=== PATIENT | female | born 1955 | race Caucasian/White ===

== ENCOUNTER 2016-10-25 11:01 | Emergency (ER) | payer BC, OTHER ==
[~2016-10-25] VITALS: Ht 160 cm; Wt 69.7 kg
[~2016-10-25 11:01] MED LIST: SCOP1.5D TOP
[2016-10-25 11:08] VITALS: TEMP 36.8; Ht 160 cm; Wt 69.7 kg
[2016-10-25] MEDS ORDERED: SODIUM CHLORIDE 0.9% 1000ML 1,000 ML IV STA (11:26)
[2016-10-25] MEDS ORDERED: DiphenhydrAMINE HCL 50 MG/ML VIAL IV STA (11:26)
[2016-10-25] MEDS ORDERED: KETOROLAC TROMETHAMINE 30 MG/ML VIAL IV STA (11:26)
[2016-10-25] MEDS ORDERED: PROCHLORPERAZINE 5 MG/ML 2 ML VIAL IV STA (11:26)
[2016-10-25] MEDS ORDERED: DEXAMETHASONE SOD INJ 4 MG/ML VIAL IV STA (11:26)
--- NOTE | 2016-10-25 12:08 | EMERGENCY ROOM VISIT NOTE ---
ED Visit Note First contact with patient: 11:14 CHIEF COMPLAINT: Migraine headache HISTORY OF PRESENT ILLNESS: This 61-year-old female patient presented to the emergency department ambulatory with a gradual onset of a severe generalized headache that started 3 days ago. The patient reports she feels the migraine was stress-induced. The patient states the migraine is similar to their typical migraines. There has been associated photophobia, phonophobia, and nausea, but no vomiting. She has had a decreased oral intake due to the nausea. The patient denies fever or chills recently, and there is no weakness or numbness of the extremities. There is no difficulty with speech or vision. No trauma to the head and no neck pain. The pain is severe, constant, and it is slowly increasing in severity. The patient rates the pain as throbbing and 8/ 10. The patient has taken Imitrex without relief. This is not the worst headache of the life and is similar to previous migraines. Previous imaging studies of the brain have been normal. The patient sees Dr. Yun for her migraines and followed up most recently 1 month ago. REVIEW OF SYSTEMS: A review of systems was performed with positives and pertinent negatives listed in the history of present illness. All other systems were reviewed and are negative. ALLERGIES: No known drug allergies MEDICATIONS: See med list PMH: Migraine headaches. The patient is otherwise healthy. SOCIAL HISTORY: The patient lives locally with her . Nonsmoker, denies alcohol use. PHYSICAL EXAM: Vital Signs: Reviewed Nurse's notes, vital signs stable. GENERAL : This is a 61-year-old female, who appears in pain, but non toxic in appearance and in no acute distress. MENTAL STATUS: Alert, oriented, and coherent. HEENT: Normocephalic. PERRLA. EOMI. Nares patent without nuchal rigidity. Tympanic membranes pearly fields without erythema or effusion bilaterally. Mucous membranes moist. NECK: Supple, no nuchal rigidity, nontender, no lymphadenopathy. HEART: Regular rhythm and normal rate without murmurs, ectopy, gallops, or rubs. LUNGS: Clear to auscultation bilaterally without wheezes, rales or rhonchi. No dullness to percussion. No accessory muscle use. No retractions. SKIN: Normal. NEUROLOGICAL: Pupils are round, equal and react to light. The optic fundi are normal and the discs are flat. The patient moves all extremities well and the gait is normal. EMERGENCY DEPARTMENT COURSE: The differential diagnosis includes acute intracranial bleed, meningitis, encephalitis, mass or mass effect, sinusitis, infection, tumor, headache, temporal arteritis and carbon monoxide exposure, and migraine. I examined the patient. The patient is well-known to this emergency department and has been here multiple times in the past for migraine headaches. The patient is on a ZERO narcotic treatment plan due to history of DUI and narcotic addiction. She was given 1 L normal saline solution, 30 mg Toradol IV, 10 mg Compazine IV, 50 mg Benadryl IV, and 10 mg Decadron IV. The patient was reassessed and felt better, but did have some anxiety likely secondary to the Compazine. She was given 0.5 mg Ativan sublingually. She was instructed to follow-up with her neurologist and was discharged home in good condition. DIAGNOSIS: Migraine headache Problem List Medical Problems: (1) Abdominal pain Status: Resolved (2) Altered mental status Status: Resolved (3) Anxiety Status: Chronic (4) Anxiety Status: Chronic (5) Anxiety reaction Status: Resolved (6) Bladder infection Status: Resolved (7) Dehydration Status: Resolved (8) Depression Status: Chronic (9) Depression Status: Chronic (10) Depression Status: Resolved (11) Depression Status: Resolved (12) Depression Status: Resolved (13) Depression Status: Resolved (14) Depression Status: Resolved (15) Headache Status: Resolved (16) Headache Status: Resolved (17) Headache Status: Resolved (18) Headache Status: Resolved (19) Hypertension Nos Status: Chronic (20) Labial abscess Status: Resolved (21) Migraine Status: Resolved (22) Migraine Status: Resolved (23) Migraine Status: Chronic (24) Migraine Status: Chronic (25) Migraine Status: Resolved (26) Migraine Status: Resolved (27) Migraine Status: Resolved (28) Migraine Status: Chronic (29) Migraine Status: Resolved (30) Migraine Status: Resolved (31) Opiate abuse, episodic Status: Chronic (32) Opiate dependence Status: Chronic (33) Suicidal ideation Status: Resolved (34) Suicidal ideation Status: Resolved (35) Suicidal ideation Status: Resolved (36) Urinary tract infection Status: Resolved (37) Urinary tract infection Status: Resolved (38) Vomiting and diarrhea Status: Resolved Surgical Problems: (1) H/O: hysterectomy Status: Resolved Current/Historical Medications Scheduled Buspirone HCl (Buspirone HCl), 10 MG PO TID Duloxetine HCl (Duloxetine HCl), 30 MG PO DAILY Gabapentin (Gabapentin), 300 MG PO TID Lamotrigine (Lamotrigine), 100 MG PO BID Quetiapine Fumarate (Seroquel), 75 MG PO HS Sumatriptan Succinate (Sumatriptan Succinate), 1 DOSE INJ DIRECTED Topiramate (Topiramate), 100 MG PO BID Verapamil Hcl (Verapamil Hcl Sr), 240 MG PO DAILY Scheduled PRN Rizatriptan Benzoate (Rizatriptan Benzoate), 10 MG PO BID PRN for Migraine Allergies Coded Allergies: No Known Allergies (Unverified , 10/25/16) Vital Signs Date Time Temp Pulse Resp B/P Pulse Ox O2 Delivery O2 Flow Rate FiO2 10/25/16 12:37 90 20 157/91 97 Room Air 10/25/16 12:12 83 20 158/98 98 Room Air 10/25/16 11:08 36.8 101 18 130/85 97 Room Air Medications Administered Medications (Trade) Dose Ordered Sig/Mary Jane Route Start Time Stop Time Status Last Admin Dose Admin Sodium Chloride (Nss 1000ml) 1,000 ml @ 999 mls/hr Q1H1M STAT IV 10/25/16 11:26 10/25/16 12:26 DC 10/25/16 11:26 999 MLS/HR Ketorolac Tromethamine (Toradol Inj) 30 mg NOW STAT IV 10/25/16 11:26 10/25/16 11:30 DC 10/25/16 11:26 30 MG Prochlorperazine Edisylate (Compazine Inj) 10 mg NOW STAT IV 10/25/16 11:26 10/25/16 11:30 DC 10/25/16 11:26 10 MG Diphenhydramine HCl (Benadryl Inj) 50 mg NOW STAT IV 10/25/16 11:26 10/25/16 11:30 DC 10/25/16 11:26 50 MG Dexamethasone Sodium Phosphate (Decadron Inj) 10 mg NOW STAT IV 10/25/16 11:26 10/25/16 11:30 DC 10/25/16 11:26 10 MG Lorazepam (Ativan Tab) 0.5 mg NOW STAT SL 10/25/16 12:16 10/25/16 12:18 DC 10/25/16 12:16 0.5 MG Departure Information Impression Primary Impression: Migraine Dispostion Home / Self-Care Condition GOOD Referrals Ronald Pinzon M.D. (PCP) Simona Yun M.D. Patient Instructions [facility] Additional Instructions You have been treated in the Emergency Department for a Headache. You have received pain medicine in the emergency department which impairs your ability to operate a vehicle. It is illegal for you to drive after receiving these medicines. Continue your home medications as prescribed. You should relax in a quiet, dark place for the rest of the day. Avoid any possible triggers including: cigarette smoke, caffeine, nicotine, chocolate, wine, beer, loud noises or music, or bright lights. You should schedule a follow-up appointment in 2-3 days with your Primary Care Provider or established Neurologist for further evaluation and treatment of your Headache. Return to the Emergency Department if your current symptoms worsen despite treatment course outlined above, or if you develop any of the following symptoms : intractable pain despite aforementioned treatment course, visual disturbances , loss of vision, unilateral weakness or facial drooping, slurring of speech, loss of coordination, or loss of consciousness. Problem Qualifiers Primary Impression: Migraine Migraine type: with aura Status migrainosus presence: without status migrainosus Intractability: not intractable Qualified Codes: G43.109 - Migraine with aura, not intractable, without status migrainosus
[2016-10-25] MEDS ORDERED: LORAZEPAM 0.5 MG TAB SL STA (12:16)
[2016-10-25 12:37] VITALS: BP 157/91; PULSE 90; O2SAT 97
[2016-12-31] MEDS ORDERED: SUMA1INJ5 INJ (15:29)
[2016-12-31] MEDS ORDERED: LAMO1TAB21 PO (15:45)
[2016-12-31] MEDS ORDERED: GABA1CAP4 PO (15:45)
[2016-12-31] MEDS ORDERED: BSP/10 PO (15:45)
[2016-12-31] MEDS ORDERED: MXL10 PO (17:31)
[2016-12-31] MEDS ORDERED: QUET1TAB32 PO (17:50)
== END 2016-10-25 12:50 | disposition home or self-care (01) ==
LOC: C.EDB 11:03 → C.EDC 12:50
DX: G43.109 Migraine with aura, not intractable, without status migrainosus (principal); F41.9 Anxiety disorder, unspecified; F32.9 Major depressive disorder, single episode, unspecified; I10 Essential (primary) hypertension; F11.10 Opioid abuse, uncomplicated; Z79.899 Other long term (current) drug therapy

== ENCOUNTER 2016-12-31 14:38 | Emergency (ER) | payer BC ==
[~2016-12-31] VITALS: Ht 160 cm; Wt 74.0 kg
[2016-12-31 14:44] VITALS: TEMP 36.9; Ht 160 cm; Wt 74.0 kg
[2016-12-31] MEDS ORDERED: XYLOCAINE 1%/SOD BICARB 20 ML VIAL INFIL ONE (15:00)
--- NOTE | 2016-12-31 15:18 | EMERGENCY ROOM VISIT NOTE ---
History Report prepared by Ashtyn: Zoya Johnson Under the Supervision of: Dr. Corey Winchester M.D. First contact with patient: 14:51 Chief Complaint: MENTAL HEALTH EVALUATION Stated Complaint: CUT ON LEFT WRIST History of Present Illness The patient is a 61 year old female who presents to the Emergency Room with complaints of persistent depressed mood for the past couple of weeks. She does not identify any triggers for her mood. She cut her left wrist with a razor. She has hurt herself before. She describes herself as a cutter. She feels that she would hurt herself again if she went back home. She has a history of depression and has been admitted before. She is on medications and has been taking them. She denies any alcohol or drug use. She has had a tetanus shot in the last 10 years. Source of History: patient Onset: past couple weeks Position: other (mental health) Quality: other (depressed mood) Timing: other (persistent) Note: Pt reports self harm. Review of Systems See HPI for pertinent positives & negatives. A total of 10 systems reviewed and were otherwise negative. Past Medical & Surgical Medical Problems: (1) Abdominal pain (2) Altered mental status (3) Anxiety (4) Anxiety (5) Anxiety reaction (6) Bladder infection (7) Dehydration (8) Depression (9) Depression (10) Depression (11) Depression (12) Depression (13) Depression (14) Depression (15) Headache (16) Headache (17) Headache (18) Headache (19) Hypertension Nos (20) Labial abscess (21) Migraine (22) Migraine (23) Migraine (24) Migraine (25) Migraine (26) Migraine (27) Migraine (28) Migraine (29) Migraine (30) Migraine (31) Opiate abuse, episodic (32) Opiate dependence (33) past psych meds (34) Suicidal ideation (35) Suicidal ideation (36) Suicidal ideation (37) Urinary tract infection (38) Urinary tract infection (39) Vomiting and diarrhea Surgical Problems: (1) H/O: hysterectomy Family History Diabetes mellitus FHx: heart disease Social History Smoking Status: Never Smoker Alcohol Use: none Drug Use: none Marital Status: Housing Status: lives with family Occupation Status: retired Current/Historical Medications Scheduled Buspirone HCl (Buspirone HCl), 10 MG PO TID Duloxetine HCl (Duloxetine HCl), 30 MG PO DAILY Gabapentin (Gabapentin), 300 MG PO TID Lamotrigine (Lamotrigine), 100 MG PO BID Quetiapine Fumarate (Seroquel), 75 MG PO HS Sumatriptan Succinate (Sumatriptan Succinate), 1 DOSE INJ DIRECTED Topiramate (Topiramate), 100 MG PO BID Verapamil Hcl (Verapamil Hcl Sr), 240 MG PO DAILY Scheduled PRN Rizatriptan Benzoate (Rizatriptan Benzoate), 10 MG PO BID PRN for Migraine Allergies Coded Allergies: No Known Allergies (Unverified , 10/25/16) Physical Exam Vital Signs Date Time Temp Pulse Resp B/P Pulse Ox O2 Delivery O2 Flow Rate FiO2 12/31/16 18:03 81 18 149/95 95 Room Air 12/31/16 16:44 80 18 155/107 96 Room Air 12/31/16 14:44 36.9 98 20 159/97 94 Room Air Physical Exam GENERAL: Patient is depressed appearing and in no acute distress. HEENT: No acute trauma, normocephalic atraumatic, mucous membranes moist, no nasal congestion, no scleral icterus. NECK: No stridor, no adenopathy, no meningismus, trachea is midline. LUNGS: No dyspnea. Clear to auscultation and equal bilaterally. No wheeze, no rhonchi. HEART: Regular rate and rhythm. No murmurs, rubs, gallops appreciated. ABDOMEN: Soft, nontender, bowel sounds positive, no masses appreciated, no peritonitis. BACK: No midline tenderness, no CVA tenderness EXTREMITIES: Normal motion all extremities, no cyanosis, no edema. NEUROLOGIC: Alert and oriented, no acute motor or sensory deficits, no focal weakness, cranial nerves grossly intact. SKIN: No rash, no jaundice, no diaphoresis. Many parallel lacerations over the distal left wrist, some deep to fascia without tendon, nerve, or arterial involvement and distal n/v intact. PSYCH: Denies suicidal ideation, though admits thoughts of cutting, admits depression. Medical Decision & Procedures Laboratory Results 12/31/16 15:18 Red Blood Count 4.53, Mean Corpuscular Volume 88.5, Mean Corpuscular Hemoglobin 30.0, Mean Corpuscular Hemoglobin Concent 33.9, Mean Platelet Volume 10.1, Neutrophils (%) (Auto) 58.6, Lymphocytes (%) (Auto) 30.8, Monocytes (%) (Auto) 8.1, Eosinophils (%) (Auto) 1.4, Basophils (%) (Auto) 0.7, Neutrophils # (Auto) 4.04, Lymphocytes # (Auto) 2.13, Monocytes # (Auto) 0.56, Eosinophils # (Auto) 0.10, Basophils # (Auto) 0.05 12/31/16 15:18 Test 12/31/16 15:01 12/31/16 15:18 Urine Color YELLOW Urine Appearance CLEAR (CLEAR) Urine pH 5.5 (4.5-7.5) Urine Specific [place] 1.027 (1.000-1.030) Urine Protein NEG (NEG) Urine Glucose (UA) NEG (NEG) Urine Ketones NEG (NEG) Urine Occult Blood NEG (NEG) Urine Nitrite NEG (NEG) Urine Bilirubin NEG (NEG) Urine Urobilinogen NEG (NEG) Urine Leukocyte Esterase TRACE (NEG) Urine WBC (Auto) 1-5 /hpf (0-5) Urine RBC (Auto) 0-4 /hpf (0-4) Urine Hyaline Casts (Auto) 1-5 /lpf (0-5) Urine Epithelial Cells (Auto) >30 /lpf (0-5) Urine Bacteria (Auto) NEG (NEG) Urine Opiates Screen NEG (NEG) Urine Methadone, Qualitative NEG (NEG) Urine Barbiturates NEG (NEG) Urine Phencyclidine (PCP) Level NEG (NEG) Ur Amphetamine/Methamphetamine NEG (NEG) MDMA (Ecstasy) Screen NEG (NEG) Urine Benzodiazepines Screen NEG (NEG) Urine Cocaine Metabolite NEG (NEG) Urine Marijuana (THC) NEG (NEG) White Blood Count 6.91 K/uL (4.8-10.8) Red Blood Count 4.53 M/uL (4.2-5.4) Hemoglobin 13.6 g/dL (12.0-16.0) Hematocrit 40.1 % (37-47) Mean Corpuscular Volume 88.5 fL (80-100) Mean Corpuscular Hemoglobin 30.0 pg (25-34) Mean Corpuscular Hemoglobin Concent 33.9 g/dl (32-36) Platelet Count 210 K/uL (130-400) Mean Platelet Volume 10.1 fL (7.4-10.4) Neutrophils (%) (Auto) 58.6 % Lymphocytes (%) (Auto) 30.8 % Monocytes (%) (Auto) 8.1 % Eosinophils (%) (Auto) 1.4 % Basophils (%) (Auto) 0.7 % Neutrophils # (Auto) 4.04 K/uL (1.4-6.5) Lymphocytes # (Auto) 2.13 K/uL (1.2-3.4) Monocytes # (Auto) 0.56 K/uL (0.11-0.59) Eosinophils # (Auto) 0.10 K/uL (0-0.5) Basophils # (Auto) 0.05 K/uL (0-0.2) RDW Standard Deviation 44.3 fL (36.4-46.3) RDW Coefficient of Variation 13.6 % (11.5-14.5) Immature Granulocyte % (Auto) 0.4 % Immature Granulocyte # (Auto) 0.03 K/uL (0.00-0.02) Anion Gap 7.0 mmol/L (3-11) Est Creatinine Clear Calc Drug Dose 46.8 ml/min Estimated GFR () 56.1 Estimated GFR (Non- 48.4 BUN/Creatinine Ratio 17.3 (10-20) Calcium Level 8.8 mg/dl (8.5-10.1) Total Bilirubin 0.4 mg/dl (0.2-1) Aspartate Amino Transf (AST/SGOT) 13 U/L (15-37) Alanine Aminotransferase (ALT/SGPT) 24 U/L (12-78) Alkaline Phosphatase 91 U/L (45-117) Total Protein 7.0 gm/dl (6.4-8.2) Albumin 3.9 gm/dl (3.4-5.0) Globulin 3.1 gm/dl (2.5-4.0) Albumin/Globulin Ratio 1.3 (0.9-2) Thyroid Stimulating Hormone (TSH) 2.080 uIu/ml (0.300-4.500) Salicylates Level < 1.7 mg/dl (2.8-20) Acetaminophen Level 3 ug/ml (10-30) Ethyl Alcohol mg/dL < 3.0 mg/dl (0-3) Laboratory results as reviewed by me. ED Course 1452: The patient was evaluated in room A7. A complete history and physical exam was performed. 1740: I reevaluated the patient. She feels comfortable going home. The psych case maker says that it would be acceptable for her to be discharged home. I discussed the treatment plan with the patient. She verbalized understanding and agreement. She will be discharged home. Medical Decision Differential: Mood Disorder, Overdose, Infectious, Electrolyte Abnormality, Cardiac, Hepatic, Endocrine, Toxicologic, Neurologic, amongst other pathologies entertained. 61 yr old female well known to department for frequent visits arrives with left wrist lacerations. No tendon/nerve/vascular injury. Initially a bit vague on risks at home but after being here for some time, discussion with psych case management and further discussions patient notes she feels safe going home. She denies any more thoughts of harm to self and denies any plans to hurt self. Family and friend feel she is safe for discharge. She will follow up with PCP. RTED if worsening or other concerns. She is stable and feeling well. Labs look good. Lacerations to wrist repaired. Wound care discussed. Impression Primary Impression: Depression Additional Impression: Laceration of wrist, left Scribe Attestation The scribe's documentation has been prepared under my direction and personally reviewed by me in its entirety. I confirm that the note above accurately reflects all work, treatment, procedures, and medical decision making performed by me. Departure Information Dispostion Home / Self-Care Referrals Ronald Pinzon M.D. (PCP) Patient Instructions ED Depression, ED Laceration Ext Sutr Stap Tape, Matchpin Additional Instructions Return in 1 week or follow up with PCP for suture removal. We are always here to help. Problem Qualifiers Primary Impression: Depression Depression Type: major depressive disorder Major depression recurrence: recurrent Active/Remission status: in partial remission Qualified Codes: F33.41 - Major depressive disorder, recurrent, in partial remission Additional Impression: Laceration of wrist, left Encounter type: initial encounter Qualified Codes: S61.512A - Laceration without foreign body of left wrist, initial encounter
[2016-12-31 15:32] LABS: URINE APPEARANCE CLEAR (CLEAR); URINE BILIRUBIN NEG (NEG); URINE COLOR YELLOW; URINE EPITHELIAL CELL AUTO >30 /lpf (0-5); URINE NITRITE NEG (NEG); URINE PH 5.5 (4.5-7.5); URINE SPECIFIC GRAVITY 1.027 (1.000-1.030); UROBILINOGEN NEG (NEG); ZZUR CULT IF INDIC CLEAN CATCH NO
[2016-12-31 15:37] LABS: MANUAL MICROSCOPIC REQUIRED? NO; REVIEW REQ? NO
[2016-12-31 15:38] LABS: BASO % 0.7 %; BASO ABS # 0.05 K/uL (0-0.2); COMPLETE YES; EOS % 1.4 %; HEMATOCRIT 40.1 % (37-47); IG% 0.4 %; LYMPH % 30.8 %; LYMPH ABS # 2.13 K/uL (1.2-3.4); MEAN CELL VOLUME 88.5 fL (80-100); MEAN CORPUSCULAR HGB CONC 33.9 g/dl (32-36); MEAN PLATELET VOLUME 10.1 fL (7.4-10.4); MONO % 8.1 %; NEUT % 58.6 %; PLATELET COUNT 210 K/uL (130-400); RED BLOOD COUNT 4.53 M/uL (4.2-5.4); WHITE BLOOD COUNT 6.91 K/uL (4.8-10.8)
[2016-12-31] MEDS ORDERED: VERA240C3 PO (15:38)
[2016-12-31 16:00] LABS: BUN/CREATININE RATIO 17.3 (10-20); CALCIUM 8.8 mg/dl (8.5-10.1); CREATININE 1.2 mg/dl (0.60-1.20); POTASSIUM 3.4 mmol/L (3.5-5.1)
[2016-12-31 16:06] LABS: BENZODIAZEPINE, URINE NEG (NEG); COCAINE,URINE NEG (NEG); PHENCYCLIDINE, URINE NEG (NEG)
[2016-12-31 16:07] LABS: ACETAMINOPHEN 3 ug/ml (10-30)
[2016-12-31 16:11] LABS: ALB/GLOB RATIO 1.3 (0.9-2); THYROID STIMULATING HORMONE 2.08 uIu/ml (0.300-4.500)
[2016-12-31] MEDS ORDERED: TPM100 PO (17:31)
[2016-12-31] MEDS ORDERED: RIZA10TA21 PO (17:31)
[2016-12-31] MEDS ORDERED: CYM30 PO (17:31)
[2016-12-31 18:03] VITALS: BP 149/95; PULSE 81; O2SAT 95
[2017-07-15] MEDS ORDERED: VITAFUSION PO (07:49)
[2017-07-24] MEDS ORDERED: DULO60CA44 PO (07:48)
[2017-07-24] MEDS ORDERED: SUMA1INJ5 INJ (15:29)
[2017-07-24] MEDS ORDERED: LAMO1TAB21 PO (15:45)
[2017-07-24] MEDS ORDERED: BSP/10 PO (15:45)
[2017-07-24] MEDS ORDERED: GABA1CAP4 PO (15:45)
[2017-07-24] MEDS ORDERED: QUET1TAB32 PO (17:50)
== END 2016-12-31 18:06 | disposition home or self-care (01) ==
LOC: C.EDB 14:40 → C.EDA 18:06
DX: F33.41 Major depressive disorder, recurrent, in partial remission (principal); S61.512A Laceration without foreign body of left wrist, initial encounter; X78.9XXA Intentional self-harm by unspecified sharp object, initial encounter; F41.8 Other specified anxiety disorders; I10 Essential (primary) hypertension; R45.851 Suicidal ideations; Z82.49 Family history of ischemic heart disease and other diseases of the circulatory system; Z83.3 Family history of diabetes mellitus

== ENCOUNTER → 2017-05-01 | Outpatient (CLI) | payer BC ==
[~2017-05-01] MED LIST changes: +BSP/10 PO; +CYM30 PO; +GABA1CAP4 PO; +LAMO1TAB21 PO; +MXL10 PO; +QUET1TAB32 PO; -SCOP1.5D TOP; +SUMA1INJ5 INJ; +TPM100 PO; +VERA240C3 PO
[2017-05-01 12:56] LABS: BASO % 0.7 %; BASO ABS # 0.04 K/uL (0-0.2); COMPLETE YES; EOS % 1.8 %; HEMATOCRIT 42.5 % (37-47); IG% 0.2 %; LYMPH % 27.5 %; LYMPH ABS # 1.65 K/uL (1.2-3.4); MEAN CELL VOLUME 91.2 fL (80-100); MEAN CORPUSCULAR HEMOGLOBIN 30.3 pg (25-34); MEAN CORPUSCULAR HGB CONC 33.2 g/dl (32-36); MEAN PLATELET VOLUME 10.3 fL (7.4-10.4); MONO % 8.7 %; NEUT % 61.1 %; PLATELET COUNT 248 K/uL (130-400); RED BLOOD COUNT 4.66 M/uL (4.2-5.4)
[2017-05-01 13:42] LABS: ALT/SGPT 23 U/L (12-78); BLOOD UREA NITROGEN 15 mg/dl (7-18); BUN/CREATININE RATIO 12.4 (10-20); CALCIUM 9.1 mg/dl (8.5-10.1); CARBON DIOXIDE 27 mmol/L (21-32); CHLORIDE 109 mmol/L (98-107); CHOLESTEROL 236 mg/dl (0-200); GLUCOSE 91 mg/dl (70-99); POTASSIUM 3.8 mmol/L (3.5-5.1); SODIUM 142 mmol/L (136-145); TRIGLYCERIDES 208 mg/dl (0-150); VERY LOW DENSITY LIPOPROT CALC 42 mg/dl
[2017-05-01 13:52] LABS: ALKALINE PHOSPHATASE 105 U/L (45-117); AST/SGOT 19 U/L (15-37); CHOLESTEROL/HDL RATIO 4.1; HDL CHOLESTEROL 57 mg/dl; LDL CHOLESTEROL CALCULATED 137 mg/dl; THYROID STIMULATING HORMONE 0.974 uIu/ml (0.300-4.500)
[2017-05-01 15:12] LABS: LYME DISEASE AB IGG NEG (NEG)
[2017-05-01 15:13] LABS: LYME DISEASE AB IGM NEG (NEG)
== END | disposition home or self-care (01) ==
LOC: C.LABBFT 10:46
PROVIDERS: ATTEND Physician Assistant Medical
DX: Z11.59 Encounter for screening for other viral diseases (principal); Z13.6 Encounter for screening for cardiovascular disorders; R61 Generalized hyperhidrosis

== ENCOUNTER → 2017-06-19 | Outpatient (CLI) | payer BC ==
--- NOTE | 2017-06-20 14:12 | MAMMOGRAPHY REPORT ---
BILATERAL DIGITAL SCREENING MAMMOGRAM TOMOSYNTHESIS WITH CAD: 06/19/2017 CLINICAL HISTORY: Routine screening. Patient has no complaints. TECHNIQUE: Breast tomosynthesis in addition to standard 2D mammography was performed. Current study was also evaluated with a Computer Aided Detection (CAD) system. COMPARISON: Comparison is made to exams dated: 02/02/2016 mammogram, 01/19/2015 mammogram, 08/25/2012 mammogram, 08/20/2011 mammogram, 08/10/2010 mammogram, and 08/09/2009 mammogram - [facility]. BREAST COMPOSITION: The tissue of both breasts is heterogeneously dense, which may obscure small mas ses. FINDINGS: No suspicious masses, calcifications, or areas of architectural distortion are noted in ei ther breast. There has been no significant interval change compared to prior exams. Scattered bilater al benign-appearing calcifications are not significantly changed. There is possible minimal architec tural distortion within the right central breast, which appears similar to multiple prior exams inclu ding the 2010 and 2008 exams, and likely represents postsurgical changes from prior reported excision al biopsy. IMPRESSION: ACR BI-RADS CATEGORY 2: BENIGN There is no mammographic evidence of malignancy. A 1 year screening mammogram is recommended. The pa tient will receive written notification of the results. Approximately 10% of breast cancers are not detected with mammography. A negative mammographic report should not delay biopsy if a clinically suggestive mass is present. Ruthann Isabel M.D. /:06/19/2017 14:52:27 Men'S Leather Dress Belt Maker: Christi TURNER(Hugo)(Natty), [facility] letter sent: Normal 1/2 BI-RADS Code: ACR BI-RADS Category 2: Benign
== END | disposition home or self-care (01) ==
LOC: C.MAMM 07:31
PROVIDERS: ATTEND Obstetrics & Gynecology
DX: Z12.31 Encounter for screening mammogram for malignant neoplasm of breast (principal)

== ENCOUNTER 2017-07-24 18:09 | Emergency (ER) | payer BC ==
[~2017-07-24] VITALS: Ht 160 cm; Wt 75.8 kg
[~2017-07-24 18:09] MED LIST changes: -CYM30 PO; +DULO60CA44 PO; -MXL10 PO; -TPM100 PO; -VERA240C3 PO; +VITAFUSION PO
[2017-07-24 18:16] VITALS: TEMP 36.7; Ht 160 cm; Wt 75.8 kg
[2017-07-24] MEDS ORDERED: DEXAMETHASONE **PF** INJ 10 MG/ML VIAL PO STA (18:41)
[2017-07-24] MEDS ORDERED: METOCLOPRAMIDE HCL INJ 5 MG/ML 2 ML VIAL IV STA (18:41)
[2017-07-24] MEDS ORDERED: DiphenhydrAMINE HCL 50 MG/ML VIAL IV STA (18:41)
[2017-07-24] MEDS ORDERED: KETOROLAC TROMETHAMINE 30 MG/ML VIAL IV STA (18:41)
--- NOTE | 2017-07-24 18:44 | EMERGENCY ROOM VISIT NOTE ---
History Report prepared by Ashtyn: Abel Sigala Under the Supervision of: Dr. Sb Herrera M.D. First contact with patient: 18:26 Chief Complaint: HEADACHE Stated Complaint: MIGRAINE, RIGHT-SIDED HEAD PAIN History of Present Illness The patient is a 61 year old white female with a past medical history of migraines, opiate abuse, anxiety, depression, SI, and UTIs who presents to the ED with a cc of a constant headache beginning two days ago. She currently rates her discomfort an 8/10 in severity. The patient states these feel like her typical migraines. She tried Imitrex injection yesterday, but it did not help. Positive blurred vision, occasional alcohol use, light increasing her symptoms, increased stress. Negative decreased movement, medical changes, tobacco use, drug use, changes in caffeine intact, increased pain with sound, sorethroat, congestion, cough, abdominal pain, recent travel, being around anyone sick, pain with urination, blood with urination, vaginal bleeding, vaginal discharge. Source of History: patient Onset: two days ago Position: head Symptom Intensity: 8/10 Quality: ache Timing: constant Modifying Factors (Worsening): other (light) Associated Symptoms: No sorethroat, No cough, No abdominal pain Note: Associated symptoms: blurred vision, increased stress Denies: decreased movement, medical changes, tobacco use, drug use, changes in caffeine intact, increased pain with sound, congestion, recent travel, being around anyone sick, pain with urination, blood with urination, vaginal bleeding , vaginal discharge. Review of Systems See HPI for pertinent positives and negatives. A total of ten systems were reviewed and were otherwise negative. Past Medical & Surgical Medical Problems: (1) Abdominal pain (2) Altered mental status (3) Anxiety (4) Anxiety (5) Anxiety reaction (6) Bladder infection (7) Dehydration (8) Depression (9) Depression (10) Depression (11) Depression (12) Depression (13) Depression (14) Depression (15) Headache (16) Headache (17) Headache (18) Headache (19) Hypertension Nos (20) Labial abscess (21) Migraine (22) Migraine (23) Migraine (24) Migraine (25) Migraine (26) Migraine (27) Migraine (28) Migraine (29) Migraine (30) Migraine (31) Opiate abuse, episodic (32) Opiate dependence (33) past psych meds (34) Suicidal ideation (35) Suicidal ideation (36) Suicidal ideation (37) Urinary tract infection (38) Urinary tract infection (39) Vomiting and diarrhea Surgical Problems: (1) H/O: hysterectomy Family History Diabetes mellitus FHx: heart disease Social History Smoking Status: Former Smoker Alcohol Use: none Drug Use: none Marital Status: Housing Status: lives with family Occupation Status: retired Current/Historical Medications Scheduled Buspirone HCl (Buspirone HCl), 10 MG PO TID Duloxetine Hcl (Cymbalta), 60 MG PO BID Gabapentin (Gabapentin), 300 MG PO TID Lamotrigine (Lamotrigine), 100 MG PO BID Pediatric Multiple Vitamin W/ (Gummi Bear Multivitamin/M), 1 TAB PO DAILY Quetiapine Fumarate (Seroquel), 1.5 TABS PO HS Scheduled PRN Acetamin/Butalbital/Caffeine (Fioricet), 1 TAB PO TID PRN for Pain Sumatriptan Succinate (Sumatriptan Succinate), 1 DOSE INJ UD PRN for Migraine Allergies Coded Allergies: No Known Allergies (Unverified , 07/15/17) Physical Exam Vital Signs Date Time Temp Pulse Resp B/P (MAP) Pulse Ox O2 Delivery O2 Flow Rate FiO2 07/24/17 21:41 84 181/101 93 07/24/17 20:14 80 177/105 95 Room Air 07/24/17 18:16 36.7 90 16 165/114 97 Room Air Physical Exam GENERAL: Awake, alert, well-appearing, NAD HENT: Normocephalic, some reproducible right forehead pain. EYES: Normal conjunctiva. Sclera non-icteric. NECK: Supple. No nuchal rigidity. FROM. No signs of meningismus. No c-spine tenderness. RESPIRATORY: CTAB, no rhonchi, wheezing, crackles CARDIAC: RRR, no MRG ABDOMEN: Soft, NTND, BS+ MSK: No chest wall TTP, no LE edema NEURO: CN 2-12 intact, 5/5 upper and lower extremity strength, no dysmetria, no drift, good finger to nose, no sensory deficits. SKIN: No rash or jaundice noted. Medical Decision & Procedures Medications Administered Medications (Trade) Dose Ordered Sig/Mary Jane Route Start Time Stop Time Status Last Admin Dose Admin Dexamethasone Sodium Phosphate (Dexamethasone Inj Pf) 10 mg ONE STAT PO 07/24/17 18:41 07/24/17 18:43 DC 07/24/17 18:59 10 MG Ketorolac Tromethamine (Toradol Inj) 30 mg NOW STAT IV 07/24/17 18:41 07/24/17 18:43 DC 07/24/17 18:58 30 MG Metoclopramide HCl (Reglan Inj) 10 mg NOW STAT IV 07/24/17 18:41 07/24/17 18:43 DC 07/24/17 18:58 10 MG Diphenhydramine HCl (Benadryl Inj) 25 mg NOW STAT IV 07/24/17 18:41 07/24/17 18:43 DC 07/24/17 18:58 25 MG Acetaminophen/ Butalbital/ Caffeine (Fioricet Tab) 1 tab NOW STAT PO 07/24/17 20:21 07/24/17 20:23 DC 07/24/17 20:48 1 TAB Prochlorperazine Maleate (Compazine Tab) 10 mg ONE STAT PO 07/24/17 20:21 07/24/17 20:23 DC 07/24/17 20:48 10 MG ED Course 1830: The patient was evaluated in room C02B. A complete history and physical exam was performed. 1954: I reevaluated the a patient and updated her of her current exam findings. Her pain has decreased from an 8 to a 6/10. It has not resolved. 2108: I reevaluated the patient. Discussed results and discharge instructions: she verbalized understanding and agreement. The patient is ready for discharge. Medical Decision The patient is a 61 year old white female with a past medical history of migraines, opiate abuse, anxiety, depression, SI, and UTIs who presents to the ED with a cc of a constant headache beginning two days ago. Etiologies such as migraine headache, meningitis, sinusitis, CO exposure, ICH, SAH, infection, tumor, headache, sinus thrombosis, arterial dissection, as well as others were entertained. Patient was seen and evaluated at the bedside. Patient is complaining of a migraine ongoing since Friday. It is right-sided on the forehead throbbing in nature. Patient does have some photophobia. This is typical with her migraines. Patient did use an Imitrex shot yesterday which did not help. She is trying pain medicine. Patient has no neurologic deficits. She denies any numbness, weakness, or tingling. Patient denies any recent trauma does not take any blood thinning medications per the patient. On exam patient has no neurologic deficits. Patient is no signs of meningismus do not believe this to be meningitis. Patient received medications. No CT of the brain was obtained at this time given that the patient had typical symptoms and had no neurologic deficits. Upon reassessment patient's pain is improved although not resolved. Patient did give and some additional medications. Patient was feeling further improvement. Patient was able tolerate by mouth. Do not believe the patient has meningitis given the history and physical. Patient was told to follow up as an outpatient with either her neurologist in order primary care physician. Patient was agreeable to this plan. Patient was given strict follow-up, discharge, and return precautions. All questions were answered. Patient was deemed suitable for outpatient follow-up at this time. Patient agreed with the plan of care and was safely discharged home. Impression Primary Impression: Headache Scribe Attestation The scribe's documentation has been prepared under my direction and personally reviewed by me in its entirety. I confirm that the note above accurately reflects all work, treatment, procedures, and medical decision making performed by me. Departure Information Dispostion Home / Self-Care Prescriptions Acetamin/Butalbital/Caffeine (FIORICET) 1 Ea Tab 1 TAB PO TID Y for Pain for 5 Days, #15 TAB Prov: Sb Herrera M.D. 07/24/17 Referrals Ronald Pinzon M.D. (PCP) Forms HOME CARE DOCUMENTATION FORM, IMPORTANT VISIT INFORMATION Patient Instructions ED Headache Migraine, Migraine Stages Tx, My [facility] Additional Instructions Please return to the emergency department if you have worsening or recurrent symptoms not amenable to at-home treatment. Please call for a follow-up appointment with her primary care physician. Please take your medications as prescribed. If you have other concerns and/or complaints please feel free to also call your primary care physician's office or return the ED for further evaluation, management, and treatment. You may take 600 mg Ibuprofen every 6 hours as needed for pain with food for no more than 2 consecutive days. You may take tylenol 1000 mg every 6 hours as needed for pain. You may take motrin and tylenol separately or at the same time. Take your medications as prescribed. You have been examined and treated today on an emergency basis only. This is not a substitute for, or an effort to provide, complete comprehensive medical care. It is impossible to recognize and treat all injuries or illnesses in a single emergency department visit. It is therefore important that you follow up closely with [facility], your PCP, and/or your specialist(s). Call as soon as possible for an appointment. Thank you for your time and consideration. I look forward to speaking with you again soon. Please don't hesitate to call us if you have any questions. Problem Qualifiers Primary Impression: Headache Headache type: unspecified Headache chronicity pattern: acute headache Intractability: not intractable Qualified Codes: R51 - Headache
[2017-07-24] MEDS ORDERED: PEDICHW34 PO (19:07)
[2017-07-24] MEDS ORDERED: PROCHLORPERAZINE MALEATE 10 MG TAB PO STA (20:21)
[2017-07-24] MEDS ORDERED: BUTALBITAL/ACETAMIN/CAFFEINE TAB PO STA (20:21)
[2017-07-24] MEDS ORDERED: FRCT/ PO (21:21)
[2017-07-24 21:41] VITALS: BP 181/101; PULSE 84; O2SAT 93
== END 2017-07-24 21:42 | disposition home or self-care (01) ==
LOC: C.EDB 18:10 → C.EDC 21:42
DX: G43.909 Migraine, unspecified, not intractable, without status migrainosus (principal); F41.9 Anxiety disorder, unspecified; F32.9 Major depressive disorder, single episode, unspecified; I10 Essential (primary) hypertension; F11.11 Opioid abuse, in remission; Z87.440 Personal history of urinary (tract) infections; Z87.891 Personal history of nicotine dependence; Z83.3 Family history of diabetes mellitus

== ENCOUNTER → 2017-07-28 | Day surgery (SDC) | payer BC ==
[2017-07-15 07:51] VITALS: Ht 160 cm; Wt 72.7 kg
[~2017-07-28] VITALS: Ht 160 cm; Wt 72.7 kg
[~2017-07-28] MED LIST changes: +ATROPINE SULFATE 0.1 MG/ML 5ML SYR IV PRN; +EpHEDrine SULFATE INJ 50 MG/ML AMP IV PRN; +FRCT/ PO; +PEDICHW34 PO; +PROPOFOL IV EMULSION 10 MG/ML 20 ML VIAL IV ONE; +SODIUM CHLORIDE 0.9% 500ML 500 ML IV ONE; -VITAFUSION PO
--- NOTE | 2017-07-28 13:50 | Endo History and Physical ---
History & Physical Date of Service: Jul 28, 2017. Chief Complaint: screening Referring Physician: Dr. Ronald Pinzon History of Present Illness 61 yo CF who presents for screening colonoscopy. Past Medical History Neurological Disorder, Fractures, Seizure Disorder, Depression Past Surgical History Hx Cardiac Surgery: No Hx Internal Defibrillator: No Hx Pacemaker: No Hx Abdominal Surgery: Yes (BLANQUITA BSO) Hx of Implantable Prosthesis: No Hx Post-Op Nausea and Vomiting: No Hx Cancer Surgery: No Hx Thoracic Surgery: No Hx Orthopedic: Yes (LT LEG ABCESS DRAINAGE (MRSA)) Hx Urinary Tract Surgery: No Family History None Social History Smoking Status: Former Smoker Hx Substance Use: Yes (HX NARCOTIC USE; QUIT 2013) Hx Alcohol Use: No Allergies Coded Allergies: No Known Allergies (Verified , 07/28/17) Current Medications Reported Home Medications Medications Dose Route/Sig Max Daily Dose Days Date Category Fioricet (Acetaminophen/Butalbital/Caffeine) 1 Ea Tab 1 Tab PO TID PRN 5 07/24/17 Rx Gummi Bear Multivitamin/M (Pediatric Multiple Vitamin W/) 1 Chw Chw 1 Tab PO DAILY 07/24/17 Reported Cymbalta (Duloxetine Hcl) 60 Mg Cap 60 Mg PO BID 07/15/17 Reported Sumatriptan Succinate 6 Mg/0.5 Ml Inj 1 Dose INJ UD PRN 07/29/16 Reported Seroquel (Quetiapine Fumarate) 50 Mg Tab 1.5 Tabs PO HS 02/15/16 Reported Lamotrigine 100 Mg Tab 100 Mg PO BID 03/03/15 Reported Gabapentin 300 Mg Cap 300 Mg PO TID 03/03/15 Reported Buspirone HCl 10 Mg Tab 10 Mg PO TID 03/03/15 Reported Vital Signs Weight (Kilograms): 72.73 Height (Feet): 5 Height (Inches): 3 Date Time Temp Pulse Resp B/P (MAP) Pulse Ox O2 Delivery O2 Flow Rate FiO2 07/28/17 13:38 37.1 90 18 175/100 (125) 98 Room Air Physical Exam General Appearance: WD/WN, no apparent distress Respiratory/Chest: Auscultation: breath sounds normal Cardiovascular: Heart Auscultation: RRR Abdomen: Bowel Sounds: normal Inspection & Palpation: soft, non-distended, no tenderness, guarding & rebound Assessment and Plan Assessment: 61 yo CF who presents for screening colonoscopy. Plan: Proceed with colonoscopy.
--- NOTE | 2017-07-28 14:26 | Discharge Instructions ---
Endoscopy Patient Instructions Date / Procedure(s) Performed Jul 28, 2017. Colonoscopy Allergy Information Coded Allergies: No Known Allergies (Verified , 07/28/17) Discharge Date / Findings Jul 28, 2017. Normal colonoscopy Medication Instructions OK to resume all medications today as prescribed Reported Home Medications Medications Dose Route/Sig Max Daily Dose Days Date Category Fioricet (Acetaminophen/Butalbital/Caffeine) 1 Ea Tab 1 Tab PO TID PRN 5 07/24/17 Rx Gummi Bear Multivitamin/M (Pediatric Multiple Vitamin W/) 1 Chw Chw 1 Tab PO DAILY 07/24/17 Reported Cymbalta (Duloxetine Hcl) 60 Mg Cap 60 Mg PO BID 07/15/17 Reported Sumatriptan Succinate 6 Mg/0.5 Ml Inj 1 Dose INJ UD PRN 07/29/16 Reported Seroquel (Quetiapine Fumarate) 50 Mg Tab 1.5 Tabs PO HS 02/15/16 Reported Lamotrigine 100 Mg Tab 100 Mg PO BID 03/03/15 Reported Gabapentin 300 Mg Cap 300 Mg PO TID 03/03/15 Reported Buspirone HCl 10 Mg Tab 10 Mg PO TID 03/03/15 Reported Provider Instructions Activity Restrictions - No exercising or heavy lifting for 24 hours. - Do not drink alcohol the day of the procedure. - Do not drive a car or operate machinery until the day after the procedure. - Do not make any important decisions or sign important papers in 24 hours after the procedure. Following Day: - Return to full activity which may include returning to work/school. Diet Start your diet with liquids and light foods (jello, soup, juice, toast). Then eat your usual diet if not nauseated. Treatment For Common After Affects For mild abdominal pain, bloating, or excessive gas: - Rest - Eat lightly - Lie on right side Follow-Up Information Follow-up with Dr. Ronald Pinzon as scheduled Anesthesia Information What You Should Know You have had a procedure that required some medicine to reduce anxiety and discomfort. This treatment is called moderate sedation. After receiving the treatment, you may be sleepy, but you will be able to breathe on your own. The effects of the treatment may last for several hours. Follow these instructions along with Activity/Diet recommendations noted above: * Do NOT do anything where dizziness or clumsiness would be dangerous. * Rest quietly at home today, then you can be up and about tomorrow. * Have a responsible person stay with you the rest of today. * You may have had an I.V. today. If so, you may take the dressing off later today. Recommendations Call your doctor if: * Trouble breathing * Continuous vomiting for more than 24 hours * Temperature above 101 degrees * Severe abdominal pain or bloating * Pain not relieved by pain medicine ordered * There is increased drainage or redness from any incision * A large amount of rectal bleeding greater than 2-3 tablespoons. (If you had a polyp/s removed or have hemorrhoids, a small amount of blood - from the rectum is to be expected.) * You have any unanswered questions or concerns. IN THE EVENT OF A SERIOUS EMERGENCY, GO TO THE NEAREST EMERGENCY ROOM Your discharge instructions were prepared by provider Glen Woo. Patient Instructions Signature Page Lyubov Dawkins Patient (or Guardian) Signature/Date: I have read and understand the instructions given to me by my caregivers. Caregiver/RN/Doctor Signature/Date: The above-named patient and/or guardian has received patient instructions on this date. + Original Patient Signature Page (only) stays with chart. Please make copy for patient.
--- NOTE | 2017-07-28 14:28 | GI REPORT ---
Procedure Date: 07/28/2017 1:31 PM Procedure: Colonoscopy Indications: Screening for colorectal malignant neoplasm Medicines: Monitored Anesthesia Care Complications: No immediate complications. Estimated Blood Loss: Estimated blood loss: none. Procedure: Pre-Anesthesia Assessment: - Prior to the procedure, a History and Physical was performed, and patient medications and allergies were reviewed. The patient's tolerance of previous anesthesia was also reviewed. The risks and benefits of the procedure and the sedation options and risks were discussed with the patient. All questions were answered, and informed consent was obtained. Prior Anticoagulants: The patient has taken no previous anticoagulant or antiplatelet agents. ASA Grade Assessment: II - A patient with mild systemic disease. After reviewing the risks and benefits, the patient was deemed in satisfactory condition to undergo the procedure. After I obtained informed consent, the scope was passed under direct vision. Throughout the procedure, the patient's blood pressure, pulse, and oxygen saturations were monitored continuously. The scope was introduced through the anus and advanced to the terminal ileum. The colonoscopy was performed without difficulty. The patient tolerated the procedure well. The quality of the bowel preparation was good. The terminal ileum, the appendiceal orifice and the rectum were photographed. Findings: The perianal and digital rectal examinations were normal. The colon (entire examined portion) appeared normal. Impression: - The entire examined colon is normal. - No specimens collected. Recommendation: - Resume previous diet. - Continue present medications. - Repeat colonoscopy in 10 years for surveillance. - Return to primary care physician as previously scheduled. Glen Woo DO 07/28/2017 2:28:02 PM This report has been signed electronically. Note Initiated On: 07/28/2017 1:31 PM I attest to the content of the Intraoperative Record and orders documented therein, exceptions below
--- NOTE | 2017-07-28 14:35 | Anesthesiology Progress Note ---
Anesthesia Post Op Note Date & Time Jul 28, 2017 at 14:35 Vital Signs Pain Intensity: 0 Vital Signs Past 12 Hours Date Time Temp Pulse Resp B/P (MAP) Pulse Ox O2 Delivery O2 Flow Rate FiO2 07/28/17 14:20 37.0 76 18 141/92 (108) 98 Room Air 07/28/17 13:38 37.1 90 18 175/100 (125) 98 Room Air Notes Mental Status: alert / awake / arousable, participated in evaluation Pt Amnestic to Procedure: Yes Nausea / Vomiting: adequately controlled Pain: adequately controlled Airway Patency, RR, SpO2: stable & adequate BP & HR: stable & adequate Hydration State: stable & adequate Anesthetic Complications: no major complications apparent
[2017-07-28 14:51] VITALS: BP 161/98; PULSE 78; O2SAT 98
== END | disposition home or self-care (01) ==
LOC: C.GI 13:11
PROVIDERS: ATTEND Internal Medicine
DX: Z12.11 Encounter for screening for malignant neoplasm of colon (principal); F32.9 Major depressive disorder, single episode, unspecified; Z87.891 Personal history of nicotine dependence; G40.909 Epilepsy, unspecified, not intractable, without status epilepticus

== ENCOUNTER 2017-08-18 14:50 | Inpatient (IN) | payer BC ==
[~2017-08-18] VITALS: Ht 160 cm; Wt 72.5 kg
[~2017-08-18 14:50] MED LIST changes: -ATROPINE SULFATE 0.1 MG/ML 5ML SYR IV PRN; -EpHEDrine SULFATE INJ 50 MG/ML AMP IV PRN; -FRCT/ PO; -PROPOFOL IV EMULSION 10 MG/ML 20 ML VIAL IV ONE; -SODIUM CHLORIDE 0.9% 500ML 500 ML IV ONE
[2017-08-18] MEDS ORDERED: DiphenhydrAMINE HCL 50 MG/ML VIAL IM STA (15:19)
[2017-08-18] MEDS ORDERED: PROCHLORPERAZINE 5 MG/ML 2 ML VIAL IM STA (15:19)
[2017-08-18] MEDS ORDERED: KETOROLAC TROMETHAMINE 60 MG/2 ML VIAL IM STA (15:19)
[2017-08-18] MEDS ORDERED: GABA-113 PO ×2 (15:35)
[2017-08-18] MEDS ORDERED: FLUO20CA36 PO (15:35)
[2017-08-18 15:53] LABS: HEMATOCRIT 47.6 % (37-47); MEAN CELL VOLUME 88.5 fL (80-100); MEAN CORPUSCULAR HEMOGLOBIN 30.5 pg (25-34); MEAN CORPUSCULAR HGB CONC 34.5 g/dl (32-36); PLATELET COUNT 271 K/uL (130-400); RED BLOOD COUNT 5.38 M/uL (4.2-5.4); WHITE BLOOD COUNT 8.84 K/uL (4.8-10.8)
[2017-08-18 16:07] LABS: BUN/CREATININE RATIO 12.7 (10-20); CALCIUM 9.6 mg/dl (8.5-10.1); CREATININE 1.09 mg/dl (0.60-1.20); POTASSIUM 3.5 mmol/L (3.5-5.1)
[2017-08-18 16:08] LABS: BENZODIAZEPINE, URINE NEG (NEG); COCAINE,URINE NEG (NEG); PHENCYCLIDINE, URINE NEG (NEG)
[2017-08-18 16:11] LABS: ACETAMINOPHEN < 2 ug/ml (10-30)
[2017-08-18 16:18] LABS: THYROID STIMULATING HORMONE 2.16 uIu/ml (0.300-4.500)
[2017-08-18 16:18] LABS: MANUAL MICROSCOPIC REQUIRED? NO; REVIEW REQ? NO; URINE APPEARANCE CLEAR (CLEAR); URINE BILIRUBIN NEG (NEG); URINE COLOR YELLOW; URINE EPITHELIAL CELL AUTO >30 /lpf (0-5); URINE NITRITE NEG (NEG); URINE SPECIFIC GRAVITY 1.015 (1.000-1.030); UROBILINOGEN NEG (NEG)
[2017-08-18] MEDS ORDERED: MAGNESIUM HYDROXIDE SUSP 30 ML UDC PO PRN (18:45)
[2017-08-18] MEDS ORDERED: ACETAMINOPHEN 325 MG TAB PO PRN (18:45)
[2017-08-18] MEDS ORDERED: hydrOXYzine HCL 25 MG TAB PO PRN ×2 (18:45)
[2017-08-18] MEDS ORDERED: SODIUM CHLORIDE 0.65% NA SOLN 45 ML (OCEAN) PRN (18:45)
[2017-08-18] MEDS ORDERED: BISMUTH SUBSALICYLATE PER ML OMNICELL CHARGE PO PRN (18:45)
[2017-08-18] MEDS ORDERED: ALUMINUM/MAGNESIUM SUSP 30 ML UDC PO PRN (18:45)
[2017-08-18 19:30] VITALS: O2SAT 96
[2017-08-18 19:50] VITALS: BP 146/99; PULSE 86; TEMP 36.8; BMI 28.3
--- NOTE | 2017-08-18 20:51 | EMERGENCY ROOM VISIT NOTE ---
History Report prepared by Ashtyn: Anant Jhaveri Under the Supervision of: Dr. Darryl Pickard M.D. First contact with patient: 15:11 Chief Complaint: MENTAL HEALTH EVALUATION Stated Complaint: SUICIDAL/MIGRAINE History of Present Illness The patient is a 62 year old female who presents to the Emergency Room with complaints of constant suicidal ideation beginning today. She states that her son and [id number] told her that they would not come to see her on [place] which made her feel very sad. She states that she and her son have been having problems before this happened. She states that these problems are based around money she loaned them that they have not yet paid back. The patient states that she began cutting her left wrist today with a knife due to her depression. She states that she still feels suicidal. Her tetanus is up to date. The patient denies recent drug or alcohol use, other than her prescribed medications. She also complains of a headache. Her headache feels like a typical migraine for her and began earlier today. The patient denies abdominal pain. Source of History: patient Onset: Today Quality: other (suicidal ideation) Timing: constant Associated Symptoms: + headache, No vomiting, No abdominal pain Review of Systems See HPI for pertinent positives & negatives. A total of 10 systems reviewed and were otherwise negative. Past Medical & Surgical Medical Problems: (1) Abdominal pain (2) Altered mental status (3) Anxiety (4) Anxiety (5) Anxiety reaction (6) Bladder infection (7) Dehydration (8) Depression (9) Depression (10) Depression (11) Depression (12) Depression (13) Depression (14) Depression (15) Headache (16) Headache (17) Headache (18) Headache (19) Hypertension Nos (20) Labial abscess (21) Migraine (22) Migraine (23) Migraine (24) Migraine (25) Migraine (26) Migraine (27) Migraine (28) Migraine (29) Migraine (30) Migraine (31) Opiate abuse, episodic (32) Opiate dependence (33) past psych meds (34) Suicidal ideation (35) Suicidal ideation (36) Suicidal ideation (37) Urinary tract infection (38) Urinary tract infection (39) Vomiting and diarrhea Surgical Problems: (1) H/O: hysterectomy Family History Diabetes mellitus FHx: heart disease Social History Smoking Status: Never Smoker Alcohol Use: none Drug Use: none Marital Status: Housing Status: lives with family Occupation Status: retired Current/Historical Medications Scheduled Buspirone HCl (Buspirone HCl), 10 MG PO TID Duloxetine Hcl (Cymbalta), 60 MG PO BID Fluoxetine HCl (Fluoxetine HCl), 20 MG PO DAILY Gabapentin (Neurontin), 600 MG PO QAM Gabapentin (Neurontin), 300 MG PO HS Lamotrigine (Lamotrigine), 100 MG PO BID Pediatric Multiple Vitamin W/ (Gummi Bear Multivitamin/M), 1 TAB PO DAILY Quetiapine Fumarate (Seroquel), 75 MG PO HS Scheduled PRN Sumatriptan Succinate (Sumatriptan Succinate), 1 DOSE INJ UD PRN for Migraine Allergies Coded Allergies: No Known Allergies (Verified , 08/18/17) Physical Exam Vital Signs Date Time Temp Pulse Resp B/P (MAP) Pulse Ox O2 Delivery O2 Flow Rate FiO2 08/18/17 19:30 86 16 146/99 96 08/18/17 18:02 90 16 147/99 95 Room Air 08/18/17 16:13 96 16 193/108 97 Room Air 08/18/17 14:58 36.8 104 20 177/119 97 Room Air Physical Exam Constitutional: Vital signs reviewed. Eyes: Pupils are equal round reactive to light. Conjunctiva are noninjected. ENT: Pharynx is clear without erythema or exudate. Mucous membranes are moist. Neck supple without meningeal signs. Respiratory: Clear to auscultation bilaterally. Breath sounds are equal bilaterally. Cardiovascular: Regular rate and rhythm. No rubs or gallops. GI: Soft, nondistended and nontender. Bowel sounds are present. Musculoskeletal: Multiple superficial lacerations to the left wrist. No signs of infection or active bleeding. Integumentary: No cyanosis. Neurological: The patient is awake and alert. Cranial nerves II-XII are intact. Motor is 5 out of 5 all extremities. Sensation is intact to light touch all extremities. Normal speech. No pronator drift. Psychiatric: Depressed affect. Tearful. Medical Decision & Procedures Laboratory Results 08/18/17 15:36 08/18/17 15:36 Test 08/18/17 15:30 08/18/17 15:36 Urine Color YELLOW Urine Appearance CLEAR (CLEAR) Urine pH 6.0 (4.5-7.5) Urine Specific [place] 1.015 (1.000-1.030) Urine Protein 2+ (NEG) Urine Glucose (UA) NEG (NEG) Urine Ketones NEG (NEG) Urine Occult Blood NEG (NEG) Urine Nitrite NEG (NEG) Urine Bilirubin NEG (NEG) Urine Urobilinogen NEG (NEG) Urine Leukocyte Esterase NEG (NEG) Urine WBC (Auto) 1-5 /hpf (0-5) Urine RBC (Auto) 0-4 /hpf (0-4) Urine Hyaline Casts (Auto) 1-5 /lpf (0-5) Urine Epithelial Cells (Auto) >30 /lpf (0-5) Urine Bacteria (Auto) NEG (NEG) Urine Opiates Screen NEG (NEG) Urine Methadone, Qualitative NEG (NEG) Urine Barbiturates NEG (NEG) Urine Phencyclidine (PCP) Level NEG (NEG) Ur Amphetamine/Methamphetamine NEG (NEG) MDMA (Ecstasy) Screen NEG (NEG) Urine Benzodiazepines Screen NEG (NEG) Urine Cocaine Metabolite NEG (NEG) Urine Marijuana (THC) NEG (NEG) Red Blood Count 5.38 M/uL (4.2-5.4) Mean Corpuscular Volume 88.5 fL (80-100) Mean Corpuscular Hemoglobin 30.5 pg (25-34) Mean Corpuscular Hemoglobin Concent 34.5 g/dl (32-36) RDW Standard Deviation 44.0 fL (36.4-46.3) RDW Coefficient of Variation 13.6 % (11.5-14.5) Mean Platelet Volume 10.0 fL (7.4-10.4) Anion Gap 8.0 mmol/L (3-11) Est Creatinine Clear Calc Drug Dose 50.4 ml/min Estimated GFR () 62.6 Estimated GFR (Non- 54.0 BUN/Creatinine Ratio 12.7 (10-20) Calcium Level 9.6 mg/dl (8.5-10.1) Total Bilirubin 0.5 mg/dl (0.2-1) Direct Bilirubin 0.1 mg/dl (0-0.2) Aspartate Amino Transf (AST/SGOT) 16 U/L (15-37) Alanine Aminotransferase (ALT/SGPT) 22 U/L (12-78) Alkaline Phosphatase 124 U/L (45-117) Total Protein 8.2 gm/dl (6.4-8.2) Albumin 4.4 gm/dl (3.4-5.0) Thyroid Stimulating Hormone (TSH) 2.160 uIu/ml (0.300-4.500) Salicylates Level < 1.7 mg/dl (2.8-20) Acetaminophen Level < 2 ug/ml (10-30) Ethyl Alcohol mg/dL < 3.0 mg/dl (0-3) Laboratory results as reviewed by me. Medications Administered Medications (Trade) Dose Ordered Sig/Mary Jane Route Start Time Stop Time Status Last Admin Dose Admin Prochlorperazine Edisylate (Compazine Inj) 10 mg NOW STAT IM 08/18/17 15:19 08/18/17 15:22 DC 08/18/17 16:15 10 MG Diphenhydramine HCl (Benadryl Inj) 50 mg ONE STAT IM 08/18/17 15:19 08/18/17 15:22 DC 08/18/17 16:16 50 MG Ketorolac Tromethamine (Toradol Inj) 10 mg NOW STAT IM 08/18/17 15:19 08/18/17 15:22 DC 08/18/17 16:15 10 MG ED Course 1514: The patient was evaluated in room A7. A complete history and physical exam was performed. 1518: Ordered Toradol Inj 10 mg IM, Benadryl Inj 50 mg IM, Compazine Inj 10 mg IM. 1912: I spoke with the sales representative electric service from [address] [place] [address]. I signed the 201 petitioning statement. The patient has been accepted and will be evaluated for further management. Medical Decision This is a 62-year-old female who presents with a migraine headache and mental health evaluation. I did perform a limited focused review of portions of the patient's old chart on the electronic medical record. I saw the patient on August 07 for headache. She was treated with Compazine and Benadryl. Additionally, she was admitted to [address] [place] [address] in March 2016 for major depressive disorder after cutting her wrist. I did evaluate the patient as noted above. The patient is presenting with a migraine headache that she has a long-standing history of migraines. She is neurologically intact. I did treat her with IM Compazine, Benadryl and Toradol. She is also presenting with suicidal ideation and cuts to her wrist. Her tetanus is up-to-date per her report. The lacerations do not require suturing and there are no signs of infection. I did order and review the patient's blood work as noted in the electronic medical record. I did medically clear the patient. The mental health director case management did evaluate the patient. The patient signed in voluntarily for inpatient psychiatric treatment to [address] [place] [address]. Medication Reconcilliation Current Medication List: was personally reviewed by me Blood Pressure Screening Patient's blood pressure: Elevated blood pressure Blood pressure disposition: Referred to PCP Impression Primary Impression: Mood disorder Additional Impressions: Suicide gesture Headache Scribe Attestation The scribe's documentation has been prepared under my direct and personally reviewed by me in its entirety. I confirm that the note above accurately reflects all work, treatment, procedures, and medical decision making performed by me. Departure Information [facility] ([address] [place] [address]) Referrals Ronald Pinzon M.D. (PCP) Patient Instructions [facility] Problem Qualifiers Additional Impressions: Suicide gesture Encounter type: initial encounter Qualified Codes: X83.8XXA - Intentional self-harm by other specified means, initial encounter Headache Headache type: unspecified Headache chronicity pattern: unspecified pattern Intractability: not intractable Qualified Codes: R51 - Headache
[2017-08-18] MEDS: DULOXETINE HCL 60 MG CAP PO SCH (21:22)
[2017-08-18] MEDS: GABAPENTIN 300 MG CAP PO SCH (21:22)
[2017-08-18] MEDS: QUETIAPINE FUMARATE 25 MG TAB PO SCH (21:22)
[2017-08-19 07:05] VITALS: BP_SYST 105; BP_SYST 109; BP_DIAS 70; BP_DIAS 74; PULSE 86; PULSE 91; TEMP 36.6
[2017-08-19 07:13] VITALS: Ht 160 cm; Wt 72.5 kg
[2017-08-19] MEDS: GABAPENTIN 300 MG CAP PO SCH ×2 (08:53→22:11)
[2017-08-19] MEDS: FLUOXETINE HCL 20 MG CAP PO SCH (08:53)
[2017-08-19] MEDS: DULOXETINE HCL 60 MG CAP PO SCH ×2 (08:53→22:10)
--- NOTE | 2017-08-19 11:17 | Psychiatric History & Physical ---
History Date of Service Aug 19, 2017. Identifying Data Lyubov Dawkins is a 62-year-old female who was brought to the emergency department by her with acute suicidality. While in the car she superficially cut her wrist with a box car loader. She is admitted voluntarily. Information is gathered from the patient and considered to be reliable. Chief Complaint "I had a big argument with my son.". History of Present Illness The patient is known to our unit for multiple hospitalizations in the past, last during the summer of 2015 at which time she had been charged with DUI. She had been on controlled substances, been found to be driving erratically. She is currently in the outpatient care of Dr. Larson at [facility] whom she saw 2 weeks ago. She is also scheduled to see a new therapist, Jennifer, next week. The patient says that generally she and her have been doing well. Her current conflict arises out of a difficult relationship with her eldest son Angelo. Apparently she and her went Angelo money because he is under financial stress. Lyubov's Regis has been phoning repeatedly wanting to know when that Would be repaid. This has become so problematic that Angelo has ceased to answer his phone calls. Part of the argument involves her many past affairs that she has had, with Angelo having told her about all of them. Jv says she was not aware that Angelo had told her of her indiscretions and on Friday confronted her son Angelo. Angelo then confirmed that they would not be involved in any [place] celebrations with Jv's family as they would normally come to [facility] with them. This has been very distressing to Jv as she puts a lot of energy and enjoyment into that celebration and is now sad that she will not see Angelo's family and her granddaughter. She told her that she was suicidal and so Regis did not let her alone all weekend fearing she would overdose. On Friday, Regis decided that he wanted to apologize to Angelo and his and invite them once again to come to [facility] however Angelo would not belt picker the phone, therefore Jv called her [id number] and asked if she could call her to have a conversation, but when the [id number] picked up it was Regis on the phone. The daughter-in -law was angry for being set up in that way and reinforced that they would not be coming to celebrate [place] with them. This led Jv to feel increasingly suicidal. Her then brought her to the emergency room and while they were driving to our facility, Jv says she got in the back seat as if to retrieve something that then got a box car loader that is in the backseat because of her 's work, and superficially cut her left wrist multiple times, not requiring sutures. Jv admits that she gets "hysterical" when she is upset, saying things that she doesn't mean and acting impulsively. The patient today describes that her mood has been "terrible, lost, upset" over the last several months as they've been dealing with this [place] issue. She says that she feels upset because she will not be able to give her granddaughter all of the presence that she purchased and admittedly says that she went overboard with gift giving this year. She reports difficult sleep, laying awake with her mind over her thinking and less she takes Seroquel to sleep. Seroquel was prescribed as 1.5 tabs however she takes 2 tabs saying that the pills are too small to cut. She reports an elevated appetite saying that she is put on a lot of weight, her clothes don't fit in this further depresses her. In terms of anxiety she says "I have a lot of that" and reports symptoms of chest pain during times of anxiety. She has not had a therapist since the beginning of July as Dr. Dietz retired but does have a good friend , Koki, whom she says she met here during her last hospitalization, who is a good girlfriend who is she is able to talk to she denies having any auditory or visual hallucinations. She does endorse cutting behaviors as a means of relieving her stress. She denies any further suicidal thinking today. Past Psychiatric History Current OP Treatment: psychiatrist (Dr. Larson), therapist (scheduled to see new therapist Jennifer next week) Prior OP Treatment: psychiatrist, therapist (Carlos Eduardo Dietz) Prior Psych Hospitalizations: [facility], [facility] Access to a Gun: Yes (Pt reported that guns are in attic . ) Suicide Attempts: Yes (by overdose which she admits were for attention) Past Medication Trials 1. Wellbutrin- didn't like the way she felt 2. Zoloft-suicidal thoughts Past Medical/Surgical History (1) Migraine Allergies Allergies: Coded Allergies: No Known Allergies (Verified , 08/18/17) Home Medications Scheduled Buspirone HCl (Buspirone HCl), 10 MG PO TID Duloxetine Hcl (Cymbalta), 60 MG PO BID Fluoxetine HCl (Fluoxetine HCl), 20 MG PO DAILY Gabapentin (Neurontin), 600 MG PO QAM Gabapentin (Neurontin), 300 MG PO HS Lamotrigine (Lamotrigine), 100 MG PO BID Pediatric Multiple Vitamin W/ (Gummi Bear Multivitamin/M), 1 TAB PO DAILY Quetiapine Fumarate (Seroquel), 75 MG PO HS Scheduled PRN Sumatriptan Succinate (Sumatriptan Succinate), 1 DOSE INJ UD PRN for Migraine Family History Diabetes mellitus FHx: heart disease History of Suicide: No History of Substance Abuse: Yes (cousin's) Psychiatric History: Yes (mother with depression, multiple cousins with depression, granddaughter with anorexia, both granddaughters with anxiety and depression) Alcohol Use Alcohol Use In Past 12 Months: Yes (1 wine cooler 2x weekly, last use 2 weeks ago) AUDIT Total Score: 2 Smoking Use Smoking Status: Never Smoker Substance History Denies the use of illicit substances currently Personal History Lives in: local area Education: graduated from high school Work History: Retired from [employer] Relationship History: Children: 2 Spiritual Affiliation: denied Legal History: none (off probation for DUI as of July 2017) Psychological Trauma History: Denies Hx Traumatic Event Review of Systems Constitutional: denies no symptoms reported, denies see HPI, denies chills, denies diaphoresis, denies fever, denies malaise, denies weakness, denies other Eyes: denies: no symptoms, as stated in HPI, eye pain, tearing, itching, redness, discharge, double vision, visual changes, blurred vision, photophobia, other ENT: reports: other (occasional difficulty swallowing liquids) Cardiovascular: reports: chest pain (with anxiety) Respiratory: denies: no symptoms reported, see HPI, cough, orthopnea, short of breath, stridor, wheezing, sputum production, cyanosis, LEROY, PND, other Gastrointestinal: other (nausea vomiting diarrhea with migraines) Genitourinary - Female: denies: no symptoms, see HPI, rash, amenorrhea, dysmenorrhea, menorrhagia, metrorrhagia, , vaginal bleeding, vaginal itching, vaginal discharge, vulvadynia, other Musculoskeletal: denies no symptoms reported, denies see HPI, denies back pain , denies gout, denies joint pain, denies joint swelling, denies muscle pain, denies muscle stiffness, denies neck pain, denies other Integumentary: other (superficial left wrist lacerations, no sutures, currently dressed.) Neurologic: reports: other (migraines) Endocrine: denies: no symptoms, as stated in HPI, cold intolerance, heat intolerance, hair changes, goiter, polydipsia, polyuria, skin changes, other Hematologic / Lymphatic: denies: no symptoms, as stated in HPI, abnormal clotting, adenopathy, anemia, easy bleeding, easy bruising, gums bleeding, petechiae, other Examination Physical Examination Exam performed by Dr. Pickard in the emergency Department has been reviewed and accepted as medical clearance to our unit Vital Signs Vital Signs Past 12 Hours Date Time Temp Pulse Resp B/P (MAP) Pulse Ox O2 Delivery O2 Flow Rate FiO2 08/19/17 07:05 36.6 86 16 105/70 91 109/74 Laboratory Results Last 24 Hours Test 08/18/17 15:30 08/18/17 15:36 Urine Color YELLOW Urine Appearance CLEAR Urine pH 6.0 Urine Specific [place] 1.015 Urine Protein 2+ Urine Glucose (UA) NEG Urine Ketones NEG Urine Occult Blood NEG Urine Nitrite NEG Urine Bilirubin NEG Urine Urobilinogen NEG Urine Leukocyte Esterase NEG Urine WBC (Auto) 1-5 /hpf Urine RBC (Auto) 0-4 /hpf Urine Hyaline Casts (Auto) 1-5 /lpf Urine Epithelial Cells (Auto) >30 /lpf Urine Bacteria (Auto) NEG Urine Opiates Screen NEG Urine Methadone, Qualitative NEG Urine Barbiturates NEG Urine Phencyclidine (PCP) Level NEG Ur Amphetamine/Methamphetamine NEG MDMA (Ecstasy) Screen NEG Urine Benzodiazepines Screen NEG Urine Cocaine Metabolite NEG Urine Marijuana (THC) NEG White Blood Count 8.84 K/uL Red Blood Count 5.38 M/uL Hemoglobin 16.4 g/dL Hematocrit 47.6 % Mean Corpuscular Volume 88.5 fL Mean Corpuscular Hemoglobin 30.5 pg Mean Corpuscular Hemoglobin Concent 34.5 g/dl RDW Standard Deviation 44.0 fL RDW Coefficient of Variation 13.6 % Platelet Count 271 K/uL Mean Platelet Volume 10.0 fL Sodium Level 139 mmol/L Potassium Level 3.5 mmol/L Chloride Level 107 mmol/L Carbon Dioxide Level 25 mmol/L Anion Gap 8.0 mmol/L Blood Urea Nitrogen 14 mg/dl Creatinine 1.09 mg/dl Est Creatinine Clear Calc Drug Dose 50.4 ml/min Estimated GFR () 62.6 Estimated GFR (Non- 54.0 BUN/Creatinine Ratio 12.7 Random Glucose 85 mg/dl Calcium Level 9.6 mg/dl Total Bilirubin 0.5 mg/dl Direct Bilirubin 0.1 mg/dl Aspartate Amino Transf (AST/SGOT) 16 U/L Alanine Aminotransferase (ALT/SGPT) 22 U/L Alkaline Phosphatase 124 U/L Total Protein 8.2 gm/dl Albumin 4.4 gm/dl Thyroid Stimulating Hormone (TSH) 2.160 uIu/ml Salicylates Level < 1.7 mg/dl Acetaminophen Level < 2 ug/ml Ethyl Alcohol mg/dL < 3.0 mg/dl Mental Examination During interview pt is: alert and oriented, cooperative Appearance: appropriately dressed, appropriately groomed Eye contact is: good Motor behavior is: steady gait & station Speech: normal in rate, rhythm & volume Affect: depressed Mood is: depressed Thought process: goal directed Thought content: reality based without delusions Suicidal thought are: present, Plan: present (overdose), Intent: present Homicidal thoughts are: denied Hallucinations: denies auditory, denies visual Cognition: memory grossly intact, attention grossly intact, language grossly intact Intelligence estimated to be: average Insight: impaired Judgement: impaired Impression / Recommendations Impression 62-year-old woman known to our unit from previous hospitalizations for depression and borderline personality disorder, admitted voluntarily with severe depression and suicidality and superficial cuts to her wrist in the setting of ongoing conflicts with family. She is acutely distressed that her eldest son and his family will not be attending [place] with them and I have some suspicions that this attempt is designed in part to get their attention. She admits that she has made suicide attempts in the past to get attention. She agrees that she needs to be in individual therapy and she has been missing a therapist since the beginning of July. We also discussed additional coping strategies to utilize when she is under duress rather than acting or speaking impulsively. She continues to try to exercise control over her son's family, where she has none. I do not necessarily think that this is a medication issue and so for now we'll obtain outpatient psychiatry records and continue her current regimen. We will need a meeting with her . At this time, the patient requires inpatient mental health treatment due to the inability to keep herself safe outside of a structured environment. Inventory Assets Strengths: Love of family Needs: To increase healthy coping strategies Risk Factors Assessment : Yes /single/: No Higher / Fall in social status: No Access to guns: Yes (Pt reported that guns are in attic . ) Health problems: No Mental Health Diagnoses: Yes Substance use disorders: No Previous attempt: Yes Family history of suicide: No Previous psychiatric stay: Yes Hopelessness: No Smoker: No Protective Factors Assessment Spiritism beliefs: No : Yes Responsible for young children: No Employed: No Stable relationships: No Supportive family: Yes () Good rapport with provider: Yes Recommendations (1) Major depressive disorder, recurrent episode with anxious distress 08/19 -Obtain outpatient records from current providers - Continue current medication regimen - Assist the patient to learn and utilize healthy coping strategies - Family meeting with - Every 15 minute checks for safety - Encourage participation in group and individual counseling (2) Borderline personality disorder 08/19 - Provide and abide by good boundaries - Attempt to educate the patient when we see her using on healthy coping strategies such as manipulation - Provide DBT material regarding self-injurious behaviors - Confirm new therapist appointment this week Dr. Jenny Hammer has been personally participated in the review in development of these recommendations CPT Code Initial Hospital Care: 53380
[2017-08-19] MEDS ORDERED: SUMATRIPTAN SUCCINATE 6 MG/0.5 ML VIAL SQ PRN (14:45)
[2017-08-19] MEDS: QUETIAPINE FUMARATE 25 MG TAB PO SCH (22:11)
[2017-08-20 06:55] VITALS: BP_SYST 107; BP_SYST 123; BP_DIAS 69; BP_DIAS 79; PULSE 80; PULSE 84; TEMP 36.6
[2017-08-20 08:12] LABS: CHOLESTEROL/HDL RATIO 3.5
[2017-08-20] MEDS: FLINTSTONES COMPLETE CHEWABLE TAB PO SCH (08:16)
[2017-08-20] MEDS: DULOXETINE HCL 60 MG CAP PO SCH ×2 (08:16→21:32)
[2017-08-20] MEDS: FLUOXETINE HCL 20 MG CAP PO SCH (08:16)
[2017-08-20] MEDS: GABAPENTIN 300 MG CAP PO SCH ×2 (08:16→21:33)
--- NOTE | 2017-08-20 10:00 | Psychiatric Progress Notes ---
Progress Note Date of Service Aug 20, 2017. Interval History 62-year-old woman known to our unit from previous hospitalizations for depression and borderline personality disorder, admitted voluntarily with severe depression and suicidality and superficial cuts to her wrist in the setting of ongoing conflicts with family. Chief Complaint "Good.". Subjective Patient was seen & assessed interval progress reviewed with Treatment Team. The patient says that she had a good day yesterday and denies any further SI saying that "It was impulsive.". She reviews that she thinks the problem all boils down to her having angered her son and his family by bugging them for the monthly payment of the money they owe Jv and her , resulting in the kids refusing to come for Xmas to their home. She does not immediately relate any of her own behaviors to the problem, like confronting her son on telling her about her multiple affairs. She wants to be able to maintain her relationship with her 2 granddaughters, which she thinks won't be a problem, but if not allowed, she would be devastated. She is scheduled to have a meeting with her this afternoon and would like to talk about this. She does admit that when she has many of her bad behaviors, ie calling DIL and then making her talk with her , they are impulsive. Nursing reports that she has been attending all groups and is a good participant. She would like to be able to discharge as soon as possible and she is no longer feeling suicidal. Review of Systems Constitutional: No fever, No chills, No sweats, No weight loss, No weakness, No fatigue, No problem reported ENT: No hearing loss, No unusual epistaxis, No nasal symptoms, No sore throat, No tinnitus, No dental problems, No trouble swallowing, No problem reported Respiratory: No cough, No sputum, No wheezing, No shortness of breath, No dyspnea on exertion, No dyspnea at rest, No hemoptysis, No problem reported Cardiovascular: No chest pain, No orthopnea, No PND, No edema, No claudication , No palpitations, No problem reported Abdomen: No pain, No nausea, No vomiting, No diarrhea, No constipation, No GI bleeding, No problem reported Musculoskeletal: No joint pain, No muscle pain, No swelling, No calf pain, No problem reported Neurologic: No memory loss, No paralysis, No weakness, No numbness/tingling, No vertigo, No balance problems, No problem reported Psychiatric: No depression symptoms, No anhedonism, No anxiety, No insomnia, No substance abuse, No problem reported Integumentary: + problem reported (superficial cuts to lt wrist) Sleep Information Total Hours of Sleep: 6.00 Meal Information Percent of Breakfast Consumed: 100 Percent of Lunch Consumed: 100 Percent of Dinner Consumed: 100 Mental Status Exam During interview pt is: alert and oriented, cooperative Appearance: appropriately dressed, appropriately groomed Eye contact is: good Motor behavior is: steady gait & station Speech: normal in rate, rhythm & volume Affect: depressed Mood is: depressed Thought process: goal directed Thought content: reality based without delusions Suicidal thought are: present, Plan: present (overdose), Intent: present Homicidal thoughts are: denied Hallucinations: denies auditory, denies visual Cognition: memory grossly intact, attention grossly intact, language grossly intact Intelligence estimated to be: average Insight: impaired Judgement: impaired Impression The patient is feeling supported by the milieu, and denies further SI. Meeting with planned for this afternoon. We have made no med changes. Her personality disorder makes it difficult for her to see how her own behaviors are affecting her relationships, and that lack of insight will prevent change moving forward. Plan (1) Major depressive disorder, recurrent episode with anxious distress 08/19 -Obtain outpatient records from current providers - Continue current medication regimen - Assist the patient to learn and utilize healthy coping strategies - Family meeting with - Every 15 minute checks for safety - Encourage participation in group and individual counseling 08/20 - Meeting with this afternoon (2) Borderline personality disorder 08/19 - Provide and abide by good boundaries - Attempt to educate the patient when we see her using on healthy coping strategies such as manipulation - Provide DBT material regarding self-injurious behaviors - Confirm new therapist appointment this week 08/20 - Encourage self reflection Dr. Jenny Hammer has been personally participated in the review in development of these recommendations Discharge / Aftercare Planning Primary Care Physician: Name: Dr Pinzon Psychiatrist: Name: JULIO - Dr. Zamora Date of Appointment: Sep 22, 2017 Therapist: Name: Francesca Date of Appointment: Aug 27, 2017 Shirt Trimmer: Name: None Visit Code E&M Code: 59844 Inventory Assets Strengths: Love of family Needs: To increase healthy coping strategies Risk Factors Assessment : Yes /single/: No Higher / Fall in social status: No Health problems: No Mental Health Diagnoses: Yes Substance use disorders: No Previous attempt: Yes Family history of suicide: No Previous psychiatric stay: Yes Hopelessness: No Smoker: No Protective Factors Assessment Restorationism beliefs: No : Yes Responsible for young children: No Employed: No Stable relationships: No Supportive family: Yes () Good rapport with provider: Yes Data Vital Signs Last 24 Hrs: Date Time Temp Pulse Resp B/P (MAP) Pulse Ox O2 Delivery O2 Flow Rate FiO2 08/20/17 06:55 36.6 80 16 123/79 84 107/69 Meds Administered Last 24 Hrs: Meds Administered (Past 24Hrs) Medications (Trade) Dose Ordered Sig/Mary Jane Route Start Time Stop Time Status Last Admin Dose Admin Prochlorperazine Edisylate (Compazine Inj) 10 mg NOW STAT IM 08/18/17 15:19 08/18/17 15:22 DC 08/18/17 16:15 10 MG Diphenhydramine HCl (Benadryl Inj) 50 mg ONE STAT IM 08/18/17 15:19 08/18/17 15:22 DC 08/18/17 16:16 50 MG Ketorolac Tromethamine (Toradol Inj) 10 mg NOW STAT IM 08/18/17 15:19 08/18/17 15:22 DC 08/18/17 16:15 10 MG Duloxetine HCl (Cymbalta Cap) 60 mg BID PO 08/18/17 21:00 09/17/17 20:59 08/20/17 08:16 60 MG Fluoxetine HCl (Prozac Cap) 20 mg DAILY PO 08/19/17 09:00 09/18/17 08:59 08/20/17 08:16 20 MG Gabapentin (Neurontin Cap) 300 mg HS PO 08/18/17 21:00 09/17/17 20:59 08/19/17 22:11 300 MG Gabapentin (Neurontin Cap) 600 mg QAM PO 08/19/17 09:00 09/18/17 08:59 08/20/17 08:16 600 MG Lamotrigine (Lamictal Tab) 100 mg BID PO 08/18/17 21:00 09/17/17 20:59 08/20/17 08:16 100 MG Quetiapine Fumarate (seroQUEL TAB) 75 mg HS PO 08/18/17 21:00 09/17/17 20:59 08/19/17 22:11 75 MG Buspirone HCl (Buspar Tab) 10 mg TID PO 08/19/17 14:00 09/18/17 13:59 08/20/17 08:16 10 MG Multivitamins (Flintstones Complete Tab) 1 tab QAM PO 08/20/17 09:00 09/19/17 08:59 08/20/17 08:16 1 TAB Lab Results Last 24 Hrs: Last 24 Hours Test 08/20/17 07:24 Fasting Glucose 82 mg/dl Triglycerides Level 94 mg/dl Cholesterol Level 194 mg/dl HDL Cholesterol 56 mg/dl LDL Cholesterol, Calculated 119 mg/dl VLDL Cholesterol, Calculated 19 mg/dl Cholesterol/HDL Ratio 3.5
[2017-08-20] MEDS: QUETIAPINE FUMARATE 25 MG TAB PO SCH (21:33)
[2017-08-21 07:01] VITALS: BP_SYST 145; BP_DIAS 89; BP_DIAS 91; PULSE 82; TEMP 36.4
[2017-08-21] MEDS: DULOXETINE HCL 60 MG CAP PO SCH (08:13)
[2017-08-21] MEDS: FLINTSTONES COMPLETE CHEWABLE TAB PO SCH (08:13)
[2017-08-21] MEDS: GABAPENTIN 300 MG CAP PO SCH (08:13)
[2017-08-21] MEDS: FLUOXETINE HCL 20 MG CAP PO SCH (08:14)
--- NOTE | 2017-08-21 09:01 | Discharge Instructions ---
Discharge Information Report Includes Report will include the: Discharge Instructions & Summary Admission Admission Date / Time: Aug 18, 2017 at 19:30 Reason for Admission: Major Depression, Recurrent Discharge Discharge Diagnosis / Problem: depression Discharge Goals Goal(s): Decrease discomfort, Improve disease control Activity Recommendations Activity Limitations: resume your previous activity . Instructions / Follow-Up Instructions / Follow-Up . SPECIAL CARE INSTRUCTIONS: 1. Follow through with your scheduled aftercare appointments. If unable to keep an appointment, please call to reschedule. 2. Take your medication only as prescribed. Medication should not be changed or stopped without the approval of your doctor. In the event of worsening symptoms or concerns about side effects, contact your doctor immediately. 3. Utilize new healthy coping skills, anger management skills, and stress management skills learned during your hospitalization. Journal feelings and process them with a support person. Identify stressors or situations that may result in relapse, deterioration or inappropriate behaviors and develop a plan to deal with those issues. 4. If your coping skills are ineffective and you are in crisis, contact your outpatient providers for direction. If unable to reach your providers, please call the CAN HELP LINE AT or go to the closest Emergency Room. 5. Avoid alcohol and un-prescribed drugs. 6. You have been provided with the Mental Health Advance Directives Pamphlet for your review. AFTERCARE APPOINTMENTS: * Please call your insurance company prior to your scheduled appointment to confirm your aftercare providers are covered. Take your insurance information to your appointments. . Discharge / Aftercare Planning Primary Care Physician: Name: Dr Pinzon Psychiatrist: Name: JULIO - Dr. Zamora Date of Appointment: Sep 22, 2017 Therapist: Name Of Therapist: Francesca Date of Appointment: Aug 27, 2017 Vice President Of Compliance: Name: None . Follow-Up Care Plan for Follow-Up Care: The patient will return to her regular providers, with a therapy appt next week on 08/27/17 Current Hospital Diet Patient's current hospital diet: Regular Diet Discharge Diet Recommended Diet: Regular Diet Procedures Procedures Performed: No Pending Studies Pending Studies at Discharge: No Medical Emergencies . Who to Call and When: Medical Emergencies: For questions or emergencies related to your hospital stay, please contact the Inpatient Behavioral Health Unit at [phone]. A attending pathologist is on-call 31/03 for the Behavioral Health Unit for emergencies At any time you feel your situation is an emergency, you may also call 911 immediately. . Non-Emergent Contact Non-Emergency issues call your: Psychiatrist, Therapist Advance Directives Existing Advance Directive: No Do You Have an Existing Mental: No Existing Living Will: No Existing Power of Fresh Foods Clerk: No Advance Directives Info Given: To Pt/S.O. Advance Directives Reason: Declines as Mental Health Visit. Discharge Summary Admission HPI Per the Admitting provider: The patient is known to our unit for multiple hospitalizations in the past, last during the summer at which time she had been charged with DUI. She had been on controlled substances, been found to be driving erratically. She is currently in the outpatient care of Dr. Larson at [facility] whom she saw 2 weeks ago. She is also scheduled to see a new therapist, Jennifer, next week. The patient says that generally she and her have been doing well. Her current conflict arises out of a difficult relationship with her eldest son Angelo. Apparently she and her went Angelo money because he is under financial stress. Lyub[employer]'s Regis has been phoning repeatedly wanting to know when that Would be repaid. This has become so problematic that Angelo has ceased to answer his phone calls. Part of the argument involves her many past affairs that she has had, with Angelo having told her about all of them. Jv says she was not aware that Angelo had told her of her indiscretions and on Friday confronted her son Angelo. Angelo then confirmed that they would not be involved in any [place] celebrations with Jv's family as they would normally come to [place] with them. This has been very distressing to Jv as she puts a lot of energy and enjoyment into that celebration and is now sad that she will not see Angelo's family and her granddaughter. She told her that she was suicidal and so Regis did not let her alone all weekend fearing she would overdose. On Friday, Regis decided that he wanted to apologize to Angelo and his and invite them once again to come to [facility] however Angelo would not filler picker the phone, therefore Jv called her [id number] and asked if she could call her to have a conversation, but when the [id number] picked up it was Regis on the phone. The daughter-in -law was angry for being set up in that way and reinforced that they would not be coming to celebrate [place] with them. This led Jv to feel increasingly suicidal. Her then brought her to the emergency room and while they were driving to our facility, Jv says she got in the back seat as if to retrieve something that then got a corrugated box machine operator that is in the backseat because of her 's work, and superficially cut her left wrist multiple times, not requiring sutures. Jv admits that she gets "hysterical" when she is upset, saying things that she doesn't mean and acting impulsively. The patient today describes that her mood has been "terrible, lost, upset" over the last several months as they've been dealing with this [place] issue. She says that she feels upset because she will not be able to give her granddaughter all of the presence that she purchased and admittedly says that she went overboard with gift giving this year. She reports difficult sleep, laying awake with her mind over her thinking and less she takes Seroquel to sleep. Seroquel was prescribed as 1.5 tabs however she takes 2 tabs saying that the pills are too small to cut. She reports an elevated appetite saying that she is put on a lot of weight, her clothes don't fit in this further depresses her. In terms of anxiety she says "I have a lot of that" and reports symptoms of chest pain during times of anxiety. She has not had a therapist since the beginning of July as Dr. Dietz retired but does have a good friend , Koki, whom she says she met here during her last hospitalization, who is a good girlfriend who is she is able to talk to she denies having any auditory or visual hallucinations. She does endorse cutting behaviors as a means of relieving her stress. She denies any further suicidal thinking today. Hospital Course (1) Major depressive disorder, recurrent episode with anxious distress 08/19 -Obtain outpatient records from current providers - Continue current medication regimen - Assist the patient to learn and utilize healthy coping strategies - Family meeting with - Every 15 minute checks for safety - Encourage participation in group and individual counseling 08/20 - Meeting with this afternoon (2) Borderline personality disorder 08/19 - Provide and abide by good boundaries - Attempt to educate the patient when we see her using on healthy coping strategies such as manipulation - Provide DBT material regarding self-injurious behaviors - Confirm new therapist appointment this week 08/20 - Encourage self reflection Risk Factors Assessment : Yes /single/: No Higher / Fall in social status: No Health problems: No Mental Health Diagnoses: Yes Substance use disorders: No Previous attempt: Yes Family history of suicide: No Previous psychiatric stay: Yes Hopelessness: No Smoker: No Protective Factors Assessment Mu-Ism beliefs: No : Yes Responsible for young children: No Employed: No Stable relationships: No Supportive family: Yes () Good rapport with provider: Yes Day of Discharge Assessment COURSE OF HOSPITALIZATION: The patient was on our unit for 3 days. She was admitted voluntarily with acute suicidality in the setting of her son telling her he would not join them for [place]. This is been an ongoing conflict, in part related to the fact that the son owes them money. No medication changes were made during her stay as this appeared to be more personality related than anything else. Her Regis was involved in family meeting to discuss the stressors and they both developed with a considered to be a good plan to try to reunite the family for [place]. She denied any further suicidal ideation and said the cutting her wrist with a corrugated box machine operator was an impulsive act. The superficial lacerations to her left wrist did not require any sutures and were healing well at the time of discharge. She will follow-up with her regular outpatient providers. DAY OF DISCHARGE ASSESSMENT: Today the patient is requesting discharge. She feels ready to go home, denies any suicidal thinking and is hopeful to be able to talk with her son soon. Her granddaughter has a band concert this evening which she plans to attend. She continues to deny suicidal thinking. Today she is casually and appropriately dressed and groomed. Gait and station are within normal limits. Eye contact is good. Affect is smiling. Speech is of normal rate volume and tone. Thoughts are organized, goal-directed, and without evidence of thought disorder. Recent and remote memory are intact per conversation. Intelligence is estimated to be average. Insight and judgment are improved over admission. Laboratory Test 08/18/17 15:30 08/18/17 15:36 08/20/17 07:24 Urine Color YELLOW Urine Appearance CLEAR Urine pH 6.0 Urine Specific [place] 1.015 Urine Protein 2+ Urine Glucose (UA) NEG Urine Ketones NEG Urine Occult Blood NEG Urine Nitrite NEG Urine Bilirubin NEG Urine Urobilinogen NEG Urine Leukocyte Esterase NEG Urine WBC (Auto) 1-5 Urine RBC (Auto) 0-4 Urine Hyaline Casts (Auto) 1-5 Urine Epithelial Cells (Auto) >30 Urine Bacteria (Auto) NEG Urine Opiates Screen NEG Urine Methadone, Qualitative NEG Urine Barbiturates NEG Urine Phencyclidine (PCP) Level NEG Ur Amphetamine/Methamphetamine NEG MDMA (Ecstasy) Screen NEG Urine Benzodiazepines Screen NEG Urine Cocaine Metabolite NEG Urine Marijuana (THC) NEG White Blood Count 8.84 Red Blood Count 5.38 Hemoglobin 16.4 Hematocrit 47.6 Mean Corpuscular Volume 88.5 Mean Corpuscular Hemoglobin 30.5 Mean Corpuscular Hemoglobin Concent 34.5 RDW Standard Deviation 44.0 RDW Coefficient of Variation 13.6 Platelet Count 271 Mean Platelet Volume 10.0 Sodium Level 139 Potassium Level 3.5 Chloride Level 107 Carbon Dioxide Level 25 Anion Gap 8.0 Blood Urea Nitrogen 14 Creatinine 1.09 Est Creatinine Clear Calc Drug Dose 50.4 Estimated GFR () 62.6 Estimated GFR (Non- 54.0 BUN/Creatinine Ratio 12.7 Random Glucose 85 Calcium Level 9.6 Total Bilirubin 0.5 Direct Bilirubin 0.1 Aspartate Amino Transferase (AST) 16 Alanine Aminotransferase (ALT) 22 Alkaline Phosphatase 124 Total Protein 8.2 Albumin 4.4 Thyroid Stimulating Hormone (TSH) 2.160 Salicylates Level < 1.7 Acetaminophen Level < 2 Ethyl Alcohol mg/dL < 3.0 Fasting Glucose 82 Triglycerides Level 94 Cholesterol Level 194 HDL Cholesterol 56 LDL Cholesterol, Calculated 119 VLDL Cholesterol, Calculated 19 Cholesterol/HDL Ratio 3.5 Total Time Total Time Spent (min): Greater than 30 minutes Total Time Included: examination of the patient, discharge planning, medication reconciliation, communication with other providers Tobacco Cessation at Discharge Smoking Status: Never Smoker FDA approved Prescription: non-smoker
== END 2017-08-21 12:45 | disposition home or self-care (01) | DRG 885 ==
LOC: C.EDB 14:52 → C.MHU 19:30
PROVIDERS: ADMIT Psychiatry & Neurology Psychiatry; ATTEND Psychiatry & Neurology Psychiatry
DX: F33.9 Major depressive disorder, recurrent, unspecified (principal); R45.851 Suicidal ideations; S61.512A Laceration without foreign body of left wrist, initial encounter; X78.8XXA Intentional self-harm by other sharp object, initial encounter; Y92.810 Car as the place of occurrence of the external cause; F60.3 Borderline personality disorder; Z83.3 Family history of diabetes mellitus

== ENCOUNTER 2017-12-28 20:11 | Emergency (ER) | payer BC, OTHER ==
[~2017-12-28] VITALS: Ht 160 cm; Wt 73.4 kg
[~2017-12-28 20:11] MED LIST changes: +FLUO20CA36 PO; +GABA-113 PO; -GABA1CAP4 PO; +SUMA1INJ5 IM; -SUMA1INJ5 INJ
[2017-12-28 20:21] VITALS: TEMP 36.7; Ht 160 cm; Wt 73.4 kg
[2017-12-28] MEDS ORDERED: DEXAMETHASONE SOD INJ 4 MG/ML VIAL IV STA (20:32)
[2017-12-28] MEDS ORDERED: DiphenhydrAMINE HCL 50 MG/ML VIAL IV STA (20:32)
[2017-12-28] MEDS ORDERED: SODIUM CHLORIDE 0.9% 1000ML 1,000 ML IV STA (20:32)
[2017-12-28] MEDS ORDERED: KETOROLAC TROMETHAMINE 30 MG/ML VIAL IV STA (20:32)
[2017-12-28] MEDS ORDERED: PROCHLORPERAZINE 5 MG/ML 2 ML VIAL IV STA (20:32)
--- NOTE | 2017-12-28 21:58 | EMERGENCY ROOM VISIT NOTE ---
ED Visit Note First contact with patient: 20:24 CHIEF COMPLAINT: Migraine headache HISTORY OF PRESENT ILLNESS: This 62-year-old female patient presented to the emergency department by private vehicle with her with a gradual onset of a severe generalized headache that started 2 days ago. The patient states the migraine is similar to their typical migraines. There has been associated photophobia, phonophobia, sensitivity to strong smells, and nausea. There has been no vomiting. The patient denies fever or chills recently, and there is no weakness or numbness of the extremities. There is no difficulty with speech or vision. No trauma to the head and no neck pain. The pain is severe, constant, and it is slowly increasing in severity. The patient rates the pain as pounding and 8/10. The patient has taken Tylenol and Imitrex without any improvement. This is not the worst headache of the life and is similar to previous migraines. Previous imaging studies of the brain have been normal per patient. She denies any other symptoms of neck pain or stiffness, blurry or double vision , chest pain, shortness of breath, dizziness or syncope, palpitations, abdominal pain, urinary symptoms, or unusual rash. REVIEW OF SYSTEMS: A complete 10 point review of systems was reviewed with the patient with pertinent positives and negatives as per history of present illness. All else were negative. ALLERGIES: No known allergies MEDICATIONS: Reviewed in the chart PMH: Reviewed in chart SOCIAL HISTORY: Lives at home with family. Denies tobacco use. PHYSICAL EXAM: Vital Signs: Reviewed Nurse's notes, vital signs stable. GENERAL : Pleasant and cooperative, no acute distress and nontoxic, but does well and in pain. MENTAL STATUS: Alert, oriented 4, and coherent. HEENT: Normocephalic. PERRLA. EOMI. Nares patent without nuchal rigidity. Tympanic membranes pearly fields without erythema or effusion bilaterally. Mucous membranes moist. NECK: Supple, no nuchal rigidity, nontender, no lymphadenopathy. HEART: Regular rhythm and normal rate without murmurs, ectopy, gallops, or rubs. LUNGS: Clear to auscultation bilaterally without wheezes, rales or rhonchi. No dullness to percussion. No accessory muscle use. No retractions. SKIN: Normal. No rashes. NEUROLOGIC: Cranial nerves II-XII grossly intact, no facial droop. No pronator drift. No focal neurologic deficits noted. 5/5 strength in all 4 extremities, sensation intact to light touch in all 4 extremities. Normal speech. Normal gait observed. Negative Romberg. [id number]-[id number] testing normal. EMERGENCY DEPARTMENT COURSE: I examined the patient. The differential diagnosis includes acute intracranial bleed, meningitis, encephalitis, mass or mass effect, sinusitis, infection, tumor, headache, temporal arteritis and carbon monoxide exposure, and migraine. Given that the patient has a history of chronic migraines and states that this is similar to previous migraines with no other red flag symptoms or exam findings, I feel that the patient does not warrant any imaging today. Patient was treated with IV fluid bolus and migraine cocktail of Toradol, Compazine, Benadryl and Decadron. On reassessment , the patient is noted to be sleeping. She is easily awakened and reports that her headache is much improved, now rating as a 4/10. Patient was instructed regarding continued management of her headaches at home, follow up with her neurologist, and return precautions should her symptoms worsen, she verbalized understanding. Patient was discharged home with her in stable condition and ambulatory. Medication Reconciliation: I attest that I have personally reviewed the patient' s current medication list. Patient's blood pressure was noted to be elevated, which was felt to be situational. I discussed the patient with Dr. Mendoza, who agrees with my assessment and plan. Problem List Medical Problems: (1) Abdominal pain Status: Resolved (2) Altered mental status Status: Resolved (3) Anxiety Status: Chronic (4) Anxiety Status: Chronic (5) Anxiety reaction Status: Resolved (6) Bladder infection Status: Resolved (7) Dehydration Status: Resolved (8) Depression Status: Chronic (9) Depression Status: Chronic (10) Depression Status: Resolved (11) Depression Status: Resolved (12) Depression Status: Resolved (13) Depression Status: Resolved (14) Depression Status: Resolved (15) Headache Status: Resolved (16) Headache Status: Resolved (17) Headache Status: Resolved (18) Headache Status: Resolved (19) Hypertension Nos Status: Chronic (20) Labial abscess Status: Resolved (21) Migraine Status: Resolved (22) Migraine Status: Resolved (23) Migraine Status: Chronic (24) Migraine Status: Chronic (25) Migraine Status: Resolved (26) Migraine Status: Resolved (27) Migraine Status: Chronic (28) Migraine Status: Resolved (29) Migraine Status: Resolved (30) Migraine Status: Resolved (31) Opiate abuse, episodic Status: Chronic (32) Opiate dependence Status: Chronic (33) Suicidal ideation Status: Resolved (34) Suicidal ideation Status: Resolved (35) Suicidal ideation Status: Resolved (36) Urinary tract infection Status: Resolved (37) Urinary tract infection Status: Resolved (38) Vomiting and diarrhea Status: Resolved Surgical Problems: (1) H/O: hysterectomy Status: Resolved Current/Historical Medications Scheduled Buspirone Hcl (Buspirone Hcl), 10 MG PO TID Duloxetine HCl (Duloxetine HCl), 60 MG PO BID Fluoxetine HCl (Fluoxetine HCl), 20 MG PO DAILY Gabapentin (Gabapentin), 300 MG PO TID Lamotrigine (Lamotrigine), 100 MG PO BID Multivitamin (Multivitamin), 1 TAB PO DAILY Quetiapine Fumarate (Seroquel), 75 MG PO HS Verapamil Hcl (Verapamil Hcl Er), 240 MG PO DAILY Scheduled PRN Sumatriptan Succinate (Sumatriptan Succinate), 6 MG IM UD PRN for Migraine Allergies Coded Allergies: No Known Allergies (Verified , 08/18/17) Vital Signs Date Time Temp Pulse Resp B/P (MAP) Pulse Ox O2 Delivery O2 Flow Rate FiO2 12/28/17 22:15 91 20 138/95 96 Room Air 12/28/17 20:21 36.7 92 18 160/97 98 Room Air Medications Administered Medications (Trade) Dose Ordered Sig/Mary Jane Route Start Time Stop Time Status Last Admin Dose Admin Prochlorperazine Edisylate (Compazine Inj) 10 mg NOW STAT IV 12/28/17 20:32 12/28/17 20:35 DC 12/28/17 20:44 10 MG Sodium Chloride 1,000 ml @ 999 mls/hr Q1H1M STAT IV 12/28/17 20:32 12/28/17 21:32 DC 12/28/17 20:44 999 MLS/HR Ketorolac Tromethamine (Toradol Inj) 15 mg NOW STAT IV 12/28/17 20:32 12/28/17 20:35 DC 12/28/17 20:44 15 MG Diphenhydramine HCl (Benadryl Inj) 50 mg NOW STAT IV 4/22/18 20:32 12/28/17 20:35 DC 12/28/17 20:44 50 MG Dexamethasone Sodium Phosphate (Decadron Inj) 10 mg NOW STAT IV 12/28/17 20:32 12/28/17 20:35 DC 12/28/17 20:45 10 MG Departure Information Impression Primary Impression: Migraine Dispostion Home / Self-Care Condition GOOD Referrals Ronald Pinzon M.D. (PCP) Simona Yun M.D. Patient Instructions ED Headache Migraine, [facility] Additional Instructions You have been evaluated and treated in the emergency department today for your migraine headache. DO NOT drive, drink alcohol, operate machinery, or perform dangerous activities today. You were given medications in the ER that can affect your ability to safely function or operate a vehicle. Rest today in a quiet, peaceful, dark environment and get a full 8-10 hrs of sleep tonight. Avoid loud noises, smoke/smoking, alcohol, bright lights, stress, or physical exertion today to minimize the chance the headache may return. Continue current medications as prescribed. Ibuprofen(Motrin, Advil) may be used for fever or pain. Use 600mg every 6-8 hours as needed. Take with food. Avoid using more than 2400mg in a 24 hour period. Do not use 2400mg per day for more than three consecutive days without physician direction. Prolonged inappropriate use can lead to stomach upset or ulcers. (AND/OR) Acetaminophen(Tylenol) may be used for fever or pain. Use 1000mg every 8 hours as needed. Avoid using more than 3000 mg in a 24 hour period. Return to the ER for passing out, worsening headache, vision problems, neck stiffness/pain, fevers, vomiting, worsening of your condition, or as needed. Follow up with your primary care provider in 2-3 days for a recheck of your current condition. You should also touch base with your neurologist regarding your migraine headache management, to determine if any medication adjustments need to be made. Work Instructions Return To Work: 2 days Problem Qualifiers Primary Impression: Migraine Migraine type: unspecified Status migrainosus presence: with status migrainosus Intractability: not intractable Qualified Codes: G43.901 - Migraine, unspecified, not intractable, with status migrainosus
[2017-12-28 22:15] VITALS: BP 138/95; PULSE 91; O2SAT 96
[2017-12-28] MEDS ORDERED: VERA240C2 PO (22:15)
[2017-12-28] MEDS ORDERED: CYM60 PO (22:15)
[2017-12-28] MEDS ORDERED: BUSP-8 PO (22:15)
[2017-12-28] MEDS ORDERED: GABA-1219 PO (22:15)
[2017-12-28] MEDS ORDERED: MULT-506 PO (22:18)
== END 2017-12-28 22:40 | disposition home or self-care (01) ==
LOC: C.EDB 20:11
DX: G43.901 Migraine, unspecified, not intractable, with status migrainosus (principal); F41.9 Anxiety disorder, unspecified; I10 Essential (primary) hypertension; F32.9 Major depressive disorder, single episode, unspecified

== ENCOUNTER 2018-01-11 18:09 | Emergency (ER) | payer OTHER ==
[~2018-01-11] VITALS: Ht 160 cm; Wt 75.3 kg
[~2018-01-11 18:09] MED LIST changes: -BSP/10 PO; +BUSP-8 PO; +CYM60 PO; -DULO60CA44 PO; -GABA-113 PO; +GABA-1219 PO; +MULT-506 PO; -PEDICHW34 PO; +VERA240C2 PO
[2018-01-11 18:24] VITALS: TEMP 36.8; Ht 160 cm; Wt 75.3 kg
[2018-01-11] MEDS ORDERED: LIDOCAINE HCL 1% 20 ML VIAL ONE (18:33)
[2018-01-11] MEDS ORDERED: LIDOCAINE 1% BUFFERED INJ 5 ML VIAL INFIL ONE (18:45)
--- NOTE | 2018-01-11 19:15 | EMERGENCY ROOM VISIT NOTE ---
History First contact with patient: 18:28 Chief Complaint: LACERATION/CUT (NON-SUTURE) Stated Complaint: CUT ON TOP OF LEFT HAND History of Present Illness The patient is a 62 year old female who presents to the Emergency Room with complaints of a laceration to her left hand. The patient accidentally cut her hand while cutting salad tonight. She does report dark appearing blood from the wound. She denies any paresthesias or numbness of the hand or fingers, and rates her discomfort a 3 out of 10. The patient is right-hand dominant. Tetanus immunization is up-to-date. Review of Systems 6 system review was performed and was negative except for pertinent positives and negatives as indicated in history of present illness Past Medical/Surgical History Medical Problems: (1) Abdominal pain (2) Altered mental status (3) Anxiety (4) Anxiety (5) Anxiety reaction (6) Bladder infection (7) Borderline personality disorder (8) Dehydration (9) Depression (10) Depression (11) Depression (12) Depression (13) Depression (14) Depression (15) Depression (16) Headache (17) Headache (18) Headache (19) Headache (20) Hypertension Nos (21) Labial abscess (22) Migraine (23) Migraine (24) Migraine (25) Migraine (26) Migraine (27) Migraine (28) Migraine (29) Migraine (30) Migraine (31) Migraine (32) Opiate abuse, episodic (33) Opiate dependence (34) past psych meds (35) Suicidal ideation (36) Suicidal ideation (37) Suicidal ideation (38) Urinary tract infection (39) Urinary tract infection (40) Vomiting and diarrhea Surgical Problems: (1) H/O: hysterectomy Family History Diabetes mellitus FHx: heart disease Social History Smoking Status: Never Smoker Alcohol Use: none Drug Use: none Marital Status: Housing Status: lives with family Occupation Status: retired Current/Historical Medications Scheduled Buspirone Hcl (Buspirone Hcl), 10 MG PO TID Duloxetine HCl (Duloxetine HCl), 60 MG PO BID Fluoxetine HCl (Fluoxetine HCl), 20 MG PO DAILY Gabapentin (Gabapentin), 300 MG PO TID Lamotrigine (Lamotrigine), 100 MG PO BID Multivitamin (Multivitamin), 1 TAB PO DAILY Quetiapine Fumarate (Seroquel), 75 MG PO HS Verapamil Hcl (Verapamil Hcl Er), 240 MG PO DAILY Scheduled PRN Sumatriptan Succinate (Sumatriptan Succinate), 6 MG IM UD PRN for Migraine Physical Exam Vital Signs Date Time Temp Pulse Resp B/P (MAP) Pulse Ox O2 Delivery O2 Flow Rate FiO2 01/11/18 18:24 36.8 84 18 122/77 97 Room Air Physical Exam CONSTITUTIONAL: Healthy and well nourished. Alert and oriented X 3 with positive affect. HEENT: Normocephalic, atraumatic. Pupils equal, round and reactive. NECK: Full active range of motion without discomfort. MUSCULOSKELETAL: Examination shows a 2 cm laceration across the dorsal radial left hand region. No active bleeding noted on my exam. Patient is able to flex and extend the fingers without signs of weakness. Capillary refill is less than 2 seconds. INTEGUMENTARY: No rash or other significant dermatologic conditions noted. NEUROLOGIC: Left hand and fingers are sensory intact. Medical Decision & Procedures Procedure Laceration repair was performed under local anesthesia after receiving verbal consent from the patient. Using buffered 1% lidocaine without epinephrine, good local anesthesia was administered. The wound was then peripherally cleansed with iodine, then irrigated with normal saline. No active bleeding is noted on wound probing. The wound was then approximated using 5-0 nylon simple interrupted sutures. A bacitracin dressing was applied. ED Course Patient history and physical exam were performed. Nurse's notes were reviewed. Vital signs were reviewed and were normal. Laceration repair was performed under local anesthesia. The patient was provided additional verbal and written wound care instructions. Ice and elevation for swelling. Ibuprofen and Tylenol as needed for pain. Suture removal in 12-14 days, or seek reevaluation sooner for any signs of wound infection. The patient was happy with plan of care, voiced understanding of all discharge instructions, and denied any pain at the time of discharge. Medical Decision Blood Pressure Screening Patient's blood pressure: Normal blood pressure Impression Primary Impression: Laceration of left hand Departure Information Dispostion Home / Self-Care Forms HOME CARE DOCUMENTATION FORM, IMPORTANT VISIT INFORMATION Patient Instructions [facility] Additional Instructions Keep wound clean and dry. Do not allow any crusting or dried blood to accumulate on sutures. If this occurs, use a 1:1 solution of hydrogen peroxide/ water on a Q-tip to clean the wound. Use an antibiotic ointment for 3-4 days, then let wound dry. Suture removal in 12-14 days. Return sooner for any signs of infection (increasing redness, swelling, drainage). Ice and elevate for swelling and pain. Ibuprofen 600 mg or Tylenol 1000 mg every 6 hrs if needed for pain. Problem Qualifiers Primary Impression: Laceration of left hand Encounter type: initial encounter Foreign body presence: without foreign body Qualified Codes: S61.412A - Laceration without foreign body of left hand , initial encounter
[2018-01-11 19:18] VITALS: BP 132/84; PULSE 78; O2SAT 98
== END 2018-01-11 19:18 | disposition home or self-care (01) ==
LOC: C.EDB 18:10 → C.EDD 19:18
DX: S61.412A Laceration without foreign body of left hand, initial encounter (principal); W26.9XXA Contact with unspecified sharp object(s), initial encounter; F41.9 Anxiety disorder, unspecified; I10 Essential (primary) hypertension; F32.9 Major depressive disorder, single episode, unspecified; Z79.899 Other long term (current) drug therapy

== ENCOUNTER 2019-04-09 04:36 | Inpatient (IN) ==
[2019-04-09] MEDS ORDERED: LORazepam 2 MG/ML VIAL (IM USE) IM STA ×2 (04:49→14:24)
[2019-04-09 06:36] LABS: Appearance Urine Cloudy (Clear); Bacteria Urine Automated 1+ (Negative); Bilirubin Urine Negative (Negative); Blood Urine Negative (Negative); Color Urine Yellow; Epithelial Cell Urine Auto >30 /lpf (0-5); Glucose Urine UA Negative (Negative); Ketones Urine Negative (Negative); Leukocyte Esterase Urine 1+ (Negative); Nitrite Urine Negative (Negative); Protein Urine Trace (Negative); RBC Urine Automated 0-4 /hpf (0-4); Specific Gravity Urine 1.016 (1.000-1.030); Urobilinogen Urine Negative (Negative)
[2019-04-09 06:57] LABS: Amphetamines+Metham, Urine Neg (Neg); Barbiturates, Urine Neg (Neg); Benzodiazepine, Urine Neg (Neg); Cocaine, Urine Neg (Neg); MDMA (Ecstacy), Urine Neg (Neg); Methadone, Urine Neg (Neg); Opiate, Urine Neg (Neg); Phencyclidine, Urine Neg (Neg)
--- NOTE | 2019-04-09 07:22 | Emergency Department Note ---
ED Visit Note This patient was signed out to me by Dr. Abrams at shift change. At that point the patient had received some sedation and was sleeping comfortably I checked on her and she was stable and sleeping. She had acute grief reaction last night after her committed suicide. The game plan was to let her sleep as she apparently was very anxious and when she wakes up to further evaluate her from a mental health standpoint. She did wake up and was still very teary-eyed and anxious. She was talking about hurting herself and had suicidal threats. We did baseline blood work for medical clearance she was medically cleared. Her sons came and saw her to. We did put a one-on-one sitter as well. We have consulted [facility] to see her for likely admission. I did give her all of her normal morning medications. [facility] did come down and see her and have ordered Haldol and Ativan. With this her blood pressure has normalized and she will likely be admitted to [facility] .
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
[2019-04-09 10:19] LABS: Basophils # (auto) 0.04 K/uL (0-0.2); Basophils % (auto) 0.5 %; Eosinophils # (auto) 0.01 K/uL (0-0.5); Eosinophils % (auto) 0.1 %; Hematocrit (blood only) 40.3 % (37-47); Hemoglobin 13.4 g/dL (12.0-16.0); Immature Granulocytes # (auto) 0.01 K/uL (0.00-0.02); Immature Granulocytes % (auto) 0.1 %; Lymphocytes % (auto) 17.2 %; Mean Corpuscular Hgb Conc 33.3 g/dL (32-36); Mean Corpuscular Volume 90.2 fL (80-100); Mean Platelet Volume 9.8 fL (7.4-10.4); Monocytes # (auto) 0.63 K/uL (0.11-0.59); Monocytes % (auto) 7.7 %; Neutrophils # (auto) 6.05 K/uL (1.4-6.5); Neutrophils % (auto) 74.4 %; Platelet Count 240 K/uL (130-400); RDW Coefficient of Variation 13.4 % (11.5-14.5); RDW Standard Deviation 44.1 fL (36.4-46.3); Red Blood Count 4.47 M/uL (4.2-5.4); White Blood Count 8.14 K/uL (4.8-10.8)
[2019-04-09 10:36] LABS: Albumin Level 3.8 gm/dl (3.4-5.0); BUN Creatinine Ratio 15.7 (10-20); Calcium 9.3 mg/dl (8.5-10.1); Creatinine Clr Calc Pharmacy 46.3 ml/min; Est GFR (African American) 57.6; Est GFR (Non-African American) 49.7; Potassium 3.5 mmol/L (3.5-5.1)
[2019-04-09 10:47] LABS: Albumin Globulin Ratio 1.2 (0.9-2); Bilirubin,Total 0.5 mg/dl (0.2-1); Globulin 3.2 gm/dl (2.5-4.0)
[2019-04-09 10:49] LABS: Acetaminophen < 2 ug/ml (10-30); Salicylate < 1.7 mg/dl (2.8-20)
[2019-04-09] MEDS ORDERED: LORazepam 1 MG TAB PO STA (11:32)
[2019-04-09] MEDS ORDERED: QUETIAPINE FUMARATE 25 MG TABLET PO STA (13:12)
[2019-04-09] MEDS ORDERED: DULOXETINE HCL 60 MG CAP PO STA (13:12)
[2019-04-09] MEDS ORDERED: FLUOXETINE HCL 20 MG CAP PO ONE (13:12)
[2019-04-09] MEDS ORDERED: lamoTRIgine 100 MG TAB PO STA (13:12)
[2019-04-09] MEDS ORDERED: GABAPENTIN 300 MG CAP PO STA (13:12)
[2019-04-09] MEDS ORDERED: VERAPAMIL HCL 240 MG TABCR PO ONE (13:15)
[2019-04-09] MEDS ORDERED: HALOPERIDOL LACTATE 5 MG/ML 1 ML VIAL IM STA (14:24)
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
[2019-04-09] MEDS ORDERED: ALUMINUM/MAGNESIUM SUSP 30 ML UDC PO PRN (20:05)
[2019-04-09] MEDS ORDERED: SODIUM CHLORIDE 0.65% NA SOLN 45 ML (OCEAN) PRN (20:05)
[2019-04-09] MEDS ORDERED: BISMUTH SUBSALICYLATE PER ML OMNICELL CHARGE PO PRN (20:05)
[2019-04-09] MEDS ORDERED: ACETAMINOPHEN 325 MG TAB PO PRN (20:05)
[2019-04-09] MEDS ORDERED: MAGNESIUM HYDROXIDE SUSP 30 ML UDC PO PRN (20:05)
--- NOTE | 2019-04-10 01:53 | Emergency Department Note ---
ED Visit Note Patient seen and evaluated by staff from [address] signed by me at 0153. Vital signs stable. .
[2019-04-10] MEDS ORDERED: LORazepam 2 MG/ML VIAL (IM USE) IM STA (10:52)
[2019-04-10] MEDS: FLUOXETINE HCL 20 MG CAP PO SCH (11:22)
[2019-04-10] MEDS: lamoTRIgine 100 MG TAB PO SCH ×2 (11:22→21:15)
[2019-04-10] MEDS: VERAPAMIL HCL 240 MG TABCR PO SCH (11:23)
[2019-04-10] MEDS: DULOXETINE HCL 60 MG CAP PO SCH ×2 (11:23→21:14)
[2019-04-10] MEDS: GABAPENTIN 300 MG CAP PO SCH ×3 (11:23→21:15)
[2019-04-10] MEDS ORDERED: LORazepam 1 MG TAB PO PRN (13:17)
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
[2019-04-10] MEDS: QUETIAPINE FUMARATE 25 MG TABLET PO SCH (21:15)
[2019-04-11] MEDS: DULOXETINE HCL 60 MG CAP PO SCH ×2 (10:38→21:16)
[2019-04-11] MEDS: VERAPAMIL HCL 240 MG TABCR PO SCH (10:38)
[2019-04-11] MEDS: GABAPENTIN 300 MG CAP PO SCH ×3 (10:39→21:16)
[2019-04-11] MEDS: lamoTRIgine 100 MG TAB PO SCH ×2 (10:39→21:16)
[2019-04-11] MEDS: FLUOXETINE HCL 20 MG CAP PO SCH (10:39)
[2019-04-11] MEDS: LORazepam 1 MG TAB PO PRN (11:15)
--- NOTE | 2019-04-11 11:37 | Psychiatric Progress Note ---
Date of Service April 11, 2019 Impression / Recommendations Impression 63 yo female with a history of recurrent depression, prior suicide attempts/hospitalizations, and borderline personality disorder who presented with inability to function following 's dramatic suicide. She is currently on a 302 commitment and requiring prns for sedating effect. 04/11--slight improvement today but very difficult to engage in history/appropriate interactions. (1) Grief reaction: 04/10--prn benzodiazepine effective, monitor use, will need tapered. For now benzo may also provide some coverage (in addition to neurontin) for ETOH withdrawal as unclear amount of use. (2) Depressive disorder, not elsewhere classified: 04/10--The patient was admitted to the [facility] ([facility] mental [facility]) on q15 min checks (behavioral with suicide precautions) for safety. The patient will participate in group, recreational, and milieu therapies and will be offered additional individual and family sessions as clinically appropriate. Continue home medications for now and reassess when more stable. Inventory Assets Strengths: outpatient providers, family involved/friend support Needs: grief counseling Risk Factors Assessment : Yes Do You Have Access To A Gun?: Yes ( just shot self, need to confirm with sons if taken out of home) Mental Health Diagnoses: Yes Previous Attempt: Yes Previous Psychiatric Hospitalization: Yes Protective Factors Assessment Employed: No (Retired) Supportive Family: Yes Interval History Chief Complaint "It's not fair". Review of Systems Sleep Information Total Hours of Sleep: 13 Sleep Comments: pt appeared to sleep 6 hrs during evening shift. pt slept in the quiet room during the night. pt on q-15 minute checks Meal Information Percent Meal Consumed - Breakfast: 100 Percent Meal Consumed - Lunch: 100 Percent Meal Consumed - Dinner: 75 Subjective Subjective Patient was seen & assessed and interval progress reviewed with Nursing and social work. Slept much of day yesterday after meds, sons visited which is main time she interacted. Slept in unlocked seclusion room for monitoring. Head banging denied but today was moving in/out of child's pose like postures on the mattress, denies doing yoga. came out for breakfast but when approached to speak with regresses to position on floor sobbing. She did verbalize that meds are fine and will try to talk tomorrow. Physical Exam Mental Examination Appearance: Unkempt Eye Contact: Avoids Eye Contact Motor Behavior: Restless Speech: Loud (sobbing) Mood: Depressed Affect: Congruent Thought Process: [place] Thought Content: Perseveration Hallucinations: None Insight: Poor Judgement: Poor Vital Signs (Past 24 Hours) Last Vital Signs Temp 36.6 C 04/11/19 10:32 Pulse 103 H 04/11/19 10:32 Resp 14 04/11/19 10:32 BP 112/69 04/11/19 10:32 Pulse Ox 96 04/09/19 22:32 Results & Data Current Inpatient Medications Current Inpatient Medications: Current Inpatient Medications Acetaminophen (Tylenol) 650 mg PO Q4H PRN PRN Reason: Headache or Minor Fever Stop: 05/09/19 20:04 Al Hydrox/Mg Hydrox/Simethicone (Maalox) 30 ml PO Q4H PRN PRN Reason: GI Upset Stop: 05/09/19 20:04 Bismuth Subsalicylate (Kaopectate) 15 ml PO PRN PRN PRN Reason: Loose Stool Stop: 05/09/19 20:04 Buspirone HCl (Buspar) 20 mg PO BID [facility] Stop: 05/10/19 11:59 Last Admin: 04/11/19 10:38 Dose: 20 mg Documented by: Duloxetine HCl (Cymbalta) 60 mg PO BID [facility] Stop: 05/10/19 11:59 Last Admin: 04/11/19 10:38 Dose: 60 mg Documented by: Fluoxetine HCl (Prozac) 20 mg PO DAILY [facility] Stop: 05/10/19 11:59 Last Admin: 04/11/19 10:39 Dose: 20 mg Documented by: Gabapentin (Neurontin) 300 mg PO TID [facility] Stop: 05/10/19 11:59 Last Admin: 04/11/19 10:39 Dose: 300 mg Documented by: Hydroxyzine HCl (Vistaril) 50 mg PO HSZ PRN PRN Reason: Insomnia Stop: 05/09/19 20:04 Hydroxyzine HCl (Vistaril) 25 mg PO Q4H PRN PRN Reason: Anxiety Stop: 05/09/19 20:04 Last Admin: 04/10/19 10:39 Dose: 25 mg Documented by: Lamotrigine (Lamictal) 100 mg PO BID [facility] Stop: 05/10/19 11:59 Last Admin: 04/11/19 10:39 Dose: 100 mg Documented by: Lorazepam (Ativan) 1 mg PO ONE PRN; Protocol PRN Reason: EtoH Withdrawal AWSS 6-10 Lorazepam (Ativan) 1 mg PO Q4 PRN PRN Reason: Anxiety/Agitation Stop: 05/10/19 13:17 Last Admin: 04/11/19 11:15 Dose: 1 mg Documented by: Magnesium Hydroxide (Milk Of Magnesia) 30 ml PO DAILY PRN PRN Reason: Heartburn Stop: 05/09/19 20:04 Quetiapine Fumarate (Seroquel) 75 mg PO HS [facility] Stop: 05/10/19 21:59 Last Admin: 04/10/19 21:15 Dose: 75 mg Documented by: Sodium Chloride (Gantt Nasal) 1 - 2 sprays NA PRN PRN PRN Reason: Nasal Dryness/Congestion Stop: 05/09/19 20:04 Verapamil HCl (Calan Sr) 240 mg PO DAILY [facility] Stop: 05/10/19 11:59 Last Admin: 04/11/19 10:38 Dose: 240 mg Documented by: Mental Health & Subst Abuse Tx Psychiatrist Name of Psychiatrist: Dr. Larson Therapist Name of Therapist: Jennifer at [facility] Lead Manufacturing Engineering Tech Name of Lead Manufacturing Engineering Tech: None CPT Code CPT Code 68769
[2019-04-11] MEDS: QUETIAPINE FUMARATE 25 MG TABLET PO SCH (21:17)
[2019-04-12] MEDS: DULOXETINE HCL 60 MG CAP PO SCH ×2 (08:56→21:26)
[2019-04-12] MEDS: VERAPAMIL HCL 240 MG TABCR PO SCH (08:56)
[2019-04-12] MEDS: GABAPENTIN 300 MG CAP PO SCH ×3 (08:57→21:25)
[2019-04-12] MEDS: lamoTRIgine 100 MG TAB PO SCH ×2 (08:57→21:25)
[2019-04-12] MEDS: FLUOXETINE HCL 20 MG CAP PO SCH (08:57)
[2019-04-12] MEDS: LORazepam 1 MG TAB PO PRN (14:02)
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
[2019-04-12] MEDS: QUETIAPINE FUMARATE 25 MG TABLET PO SCH (21:25)
[2019-04-13] MEDS: GABAPENTIN 300 MG CAP PO SCH ×3 (08:26→21:20)
[2019-04-13] MEDS: VERAPAMIL HCL 240 MG TABCR PO SCH (08:26)
[2019-04-13] MEDS: DULOXETINE HCL 60 MG CAP PO SCH ×2 (08:26→21:20)
[2019-04-13] MEDS: lamoTRIgine 100 MG TAB PO SCH ×2 (08:26→21:20)
[2019-04-13] MEDS: FLUOXETINE HCL 20 MG CAP PO SCH (08:26)
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
[2019-04-13] MEDS: LORazepam 1 MG TAB PO PRN ×2 (13:21→21:20)
[2019-04-13] MEDS: QUETIAPINE FUMARATE 25 MG TABLET PO SCH (21:20)
[2019-04-14 07:48] LABS: Glucose Fasting 81 mg/dl (70-99)
[2019-04-14 07:55] LABS: Chol HDL Ratio 4; Cholesterol 185 mg/dl (0-200); HDL Cholesterol 48 mg/dl; LDL Cholesterol Calculated 103 mg/dl; Triglycerides 170 mg/dl (0-150); VLDL Cholesterol 34 mg/dl
[2019-04-14] MEDS: FLUOXETINE HCL 20 MG CAP PO SCH (09:06)
[2019-04-14] MEDS: DULOXETINE HCL 60 MG CAP PO SCH ×2 (09:06→21:51)
[2019-04-14] MEDS: lamoTRIgine 100 MG TAB PO SCH ×2 (09:06→21:51)
[2019-04-14] MEDS: VERAPAMIL HCL 240 MG TABCR PO SCH (09:06)
[2019-04-14] MEDS: GABAPENTIN 300 MG CAP PO SCH ×3 (09:06→21:51)
[2019-04-14] MEDS: LORazepam 1 MG TAB PO PRN (09:21)
--- NOTE | 2019-04-14 12:55 | Communication Note ---
Date of Service: April 14, 2019 Outpatient records from [facility] reviewed: Patient has been seen there for many years, with initial psychiatric evaluation performed in 2013. At that time, she was reporting depression and anxiety due to marital strain, and had had several recent psychiatric hospitalizations. She had attempted suicide by overdose in the context of her learning of a long-standing affair she had been having with another man. She then found out that her boyfriend was dating another woman, and again overdosed in a suicide attempt. She reported a history of self-injurious behavior since age 15, when she overdosed and cut her wrist, and endorsed frequent episodes of depression and recurrent thoughts of . She was on venlafaxine XR 300 mg daily at the time, which was continued. She was diagnosed with recurrent severe depression and personality disorder with dependent and narcissistic traits. In 07/2018, she was on BuSpar, fluoxetine, quetiapine, lamotrigine, gabapentin, and duloxetine, and was requesting Ativan or Klonopin, which was not provided due to her history of benzodiazepine abuse and overdoses. In 08/2018, 10/2018, 12/2018, and 03/2019 she reported stability and was continued on her medications unchanged. Her current diagnoses are severe, recurrent depression without psychosis, OCD, personality disorder NOS with narcissistic traits, and borderline personality disorder.
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
[2019-04-14] MEDS: QUETIAPINE FUMARATE 25 MG TABLET PO SCH (21:51)
[2019-04-15] MEDS: VERAPAMIL HCL 240 MG TABCR PO SCH (08:38)
[2019-04-15] MEDS: DULOXETINE HCL 60 MG CAP PO SCH ×2 (08:39→21:15)
[2019-04-15] MEDS: FLUOXETINE HCL 20 MG CAP PO SCH (08:39)
[2019-04-15] MEDS: GABAPENTIN 300 MG CAP PO SCH ×3 (08:39→21:15)
[2019-04-15] MEDS: lamoTRIgine 100 MG TAB PO SCH ×2 (08:39→21:15)
[2019-04-15] MEDS: LORazepam 1 MG TAB PO PRN ×2 (09:14→21:39)
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
[2019-04-15] MEDS: QUETIAPINE FUMARATE 25 MG TABLET PO SCH (21:15)
[2019-04-16] MEDS: FLUOXETINE HCL 20 MG CAP PO SCH (08:19)
[2019-04-16] MEDS: DULOXETINE HCL 60 MG CAP PO SCH ×2 (08:19→21:06)
[2019-04-16] MEDS: VERAPAMIL HCL 240 MG TABCR PO SCH (08:20)
[2019-04-16] MEDS: GABAPENTIN 300 MG CAP PO SCH ×3 (08:21→21:05)
[2019-04-16] MEDS: lamoTRIgine 100 MG TAB PO SCH ×2 (08:21→21:06)
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
[2019-04-16] MEDS: LORazepam 1 MG TAB PO PRN ×2 (15:07→21:09)
[2019-04-16] MEDS: QUETIAPINE FUMARATE 25 MG TABLET PO SCH (21:05)
[2019-04-17] MEDS: FLUOXETINE HCL 20 MG CAP PO SCH (08:44)
[2019-04-17] MEDS: GABAPENTIN 300 MG CAP PO SCH ×3 (08:45→20:34)
[2019-04-17] MEDS: DULOXETINE HCL 60 MG CAP PO SCH ×2 (08:45→20:34)
[2019-04-17] MEDS: VERAPAMIL HCL 240 MG TABCR PO SCH (08:45)
[2019-04-17] MEDS: lamoTRIgine 100 MG TAB PO SCH ×2 (08:45→20:34)
[2019-04-17] MEDS: BACITRACIN OINT 0.9 GM PKT EXT PRN (08:50)
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
[2019-04-17] MEDS: QUETIAPINE FUMARATE 25 MG TABLET PO SCH (21:53)
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
[2019-04-18] MEDS: FLUOXETINE HCL 20 MG CAP PO SCH (08:32)
[2019-04-18] MEDS: VERAPAMIL HCL 240 MG TABCR PO SCH (08:32)
[2019-04-18] MEDS: GABAPENTIN 300 MG CAP PO SCH ×3 (08:32→21:08)
[2019-04-18] MEDS: lamoTRIgine 100 MG TAB PO SCH ×2 (08:32→21:08)
[2019-04-18] MEDS: DULOXETINE HCL 60 MG CAP PO SCH ×2 (08:32→21:08)
[2019-04-18] MEDS: BACITRACIN OINT 0.9 GM PKT EXT PRN (12:43)
[2019-04-18] MEDS: QUETIAPINE FUMARATE 25 MG TABLET PO SCH (21:08)
[2019-04-19] MEDS: DULOXETINE HCL 60 MG CAP PO SCH ×2 (09:07→21:06)
[2019-04-19] MEDS: GABAPENTIN 300 MG CAP PO SCH ×3 (09:07→21:06)
[2019-04-19] MEDS: FLUOXETINE HCL 20 MG CAP PO SCH (09:07)
[2019-04-19] MEDS: lamoTRIgine 100 MG TAB PO SCH ×2 (09:07→21:06)
[2019-04-19] MEDS: VERAPAMIL HCL 240 MG TABCR PO SCH (09:07)
[2019-04-19] MEDS: BACITRACIN OINT 0.9 GM PKT EXT PRN (09:13)
[2019-04-19] MEDS: LORazepam 1 MG TAB PO PRN ×2 (11:17→18:31)
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
[2019-04-19] MEDS: QUETIAPINE FUMARATE 25 MG TABLET PO SCH (21:06)
[2019-04-20] MEDS: VERAPAMIL HCL 240 MG TABCR PO SCH (08:18)
[2019-04-20] MEDS: GABAPENTIN 300 MG CAP PO SCH ×3 (08:18→21:23)
[2019-04-20] MEDS: lamoTRIgine 100 MG TAB PO SCH ×2 (08:18→21:23)
[2019-04-20] MEDS: DULOXETINE HCL 60 MG CAP PO SCH ×2 (08:18→21:22)
[2019-04-20] MEDS: FLUOXETINE HCL 20 MG CAP PO SCH (08:18)
[2019-04-20] MEDS: LORazepam 1 MG TAB PO PRN ×2 (09:56→17:44)
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
[2019-04-20] MEDS: QUETIAPINE FUMARATE 25 MG TABLET PO SCH (21:23)
[2019-04-21] MEDS: VERAPAMIL HCL 240 MG TABCR PO SCH (08:55)
[2019-04-21] MEDS: DULOXETINE HCL 60 MG CAP PO SCH ×2 (08:55→21:05)
[2019-04-21] MEDS: FLUOXETINE HCL 20 MG CAP PO SCH (08:56)
[2019-04-21] MEDS: lamoTRIgine 100 MG TAB PO SCH ×2 (08:56→21:04)
[2019-04-21] MEDS: GABAPENTIN 300 MG CAP PO SCH ×3 (08:56→21:05)
[2019-04-21] MEDS: LORazepam 1 MG TAB PO PRN ×2 (12:45→21:09)
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
[2019-04-21] MEDS: QUETIAPINE FUMARATE 25 MG TABLET PO SCH (21:06)
[2019-04-22] MEDS: GABAPENTIN 300 MG CAP PO SCH ×3 (08:47→21:22)
[2019-04-22] MEDS: VERAPAMIL HCL 240 MG TABCR PO SCH (08:47)
[2019-04-22] MEDS: lamoTRIgine 100 MG TAB PO SCH ×2 (08:47→21:21)
[2019-04-22] MEDS: FLUOXETINE HCL 20 MG CAP PO SCH (08:47)
[2019-04-22] MEDS: DULOXETINE HCL 60 MG CAP PO SCH ×2 (08:47→21:22)
[2019-04-22] MEDS: LORazepam 1 MG TAB PO PRN ×2 (12:33→19:29)
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
[2019-04-22] MEDS: QUETIAPINE FUMARATE 25 MG TABLET PO SCH (21:22)
[2019-04-23] MEDS: DULOXETINE HCL 60 MG CAP PO SCH ×2 (07:47→20:32)
[2019-04-23] MEDS: GABAPENTIN 300 MG CAP PO SCH ×3 (07:47→20:32)
[2019-04-23] MEDS: FLUOXETINE HCL 20 MG CAP PO SCH (07:47)
[2019-04-23] MEDS: lamoTRIgine 100 MG TAB PO SCH ×2 (07:47→20:32)
[2019-04-23] MEDS: VERAPAMIL HCL 240 MG TABCR PO SCH (07:47)
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
[2019-04-23] MEDS: LORazepam 1 MG TAB PO PRN (17:44)
[2019-04-23] MEDS: QUETIAPINE FUMARATE 25 MG TABLET PO SCH (22:27)
[2019-04-24] MEDS: GABAPENTIN 300 MG CAP PO SCH ×3 (07:59→21:02)
[2019-04-24] MEDS: VERAPAMIL HCL 240 MG TABCR PO SCH (07:59)
[2019-04-24] MEDS: DULOXETINE HCL 60 MG CAP PO SCH ×2 (07:59→21:01)
[2019-04-24] MEDS: FLUOXETINE HCL 20 MG CAP PO SCH (07:59)
[2019-04-24] MEDS: lamoTRIgine 100 MG TAB PO SCH ×2 (08:00→21:02)
[2019-04-24] MEDS: LORazepam 1 MG TAB PO PRN ×3 (11:12→21:10)
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
[2019-04-24] MEDS: QUETIAPINE FUMARATE 25 MG TABLET PO SCH (21:02)
[2019-04-24] MEDS: BACITRACIN OINT 0.9 GM PKT EXT PRN (21:10)
[2019-04-25] MEDS: GABAPENTIN 300 MG CAP PO SCH ×3 (09:08→21:16)
[2019-04-25] MEDS: lamoTRIgine 100 MG TAB PO SCH ×2 (09:08→21:16)
[2019-04-25] MEDS: VERAPAMIL HCL 240 MG TABCR PO SCH (09:08)
[2019-04-25] MEDS: DULOXETINE HCL 60 MG CAP PO SCH ×2 (09:08→21:15)
[2019-04-25] MEDS: FLUOXETINE HCL 20 MG CAP PO SCH (09:09)
[2019-04-25] MEDS: LORazepam 1 MG TAB PO PRN ×2 (14:13→21:17)
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
[2019-04-25] MEDS: OLANZAPINE 2.5 MG TAB PO SCH (21:16)
[2019-04-26] MEDS: VERAPAMIL HCL 240 MG TABCR PO SCH (08:04)
[2019-04-26] MEDS: DULOXETINE HCL 60 MG CAP PO SCH ×2 (08:05→21:04)
[2019-04-26] MEDS: GABAPENTIN 300 MG CAP PO SCH ×3 (08:05→21:04)
[2019-04-26] MEDS: FLUOXETINE HCL 20 MG CAP PO SCH (08:05)
[2019-04-26] MEDS: lamoTRIgine 100 MG TAB PO SCH ×2 (08:05→21:04)
[2019-04-26] MEDS: LORazepam 1 MG TAB PO PRN ×2 (10:20→18:26)
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
[2019-04-26] MEDS: OLANZAPINE 2.5 MG TAB PO SCH (21:04)
[2019-04-27] MEDS: VERAPAMIL HCL 240 MG TABCR PO SCH (08:37)
[2019-04-27] MEDS: DULOXETINE HCL 60 MG CAP PO SCH ×2 (08:37→20:50)
[2019-04-27] MEDS: FLUOXETINE HCL 20 MG CAP PO SCH (08:38)
[2019-04-27] MEDS: lamoTRIgine 100 MG TAB PO SCH ×2 (08:38→20:50)
[2019-04-27] MEDS: GABAPENTIN 300 MG CAP PO SCH ×3 (08:38→20:50)
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
[2019-04-27] MEDS: LORazepam 1 MG TAB PO PRN ×2 (10:37→19:06)
[2019-04-27] MEDS: OLANZAPINE 2.5 MG TAB PO SCH (20:50)
[2019-04-28] MEDS: VERAPAMIL HCL 240 MG TABCR PO SCH (08:49)
[2019-04-28] MEDS: DULOXETINE HCL 60 MG CAP PO SCH ×2 (08:49→20:38)
[2019-04-28] MEDS: lamoTRIgine 100 MG TAB PO SCH ×2 (08:50→20:38)
[2019-04-28] MEDS: GABAPENTIN 300 MG CAP PO SCH ×3 (08:50→20:39)
[2019-04-28] MEDS: FLUOXETINE HCL 20 MG CAP PO SCH (08:50)
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
[2019-04-28] MEDS: LORazepam 1 MG TAB PO PRN ×2 (16:52→20:43)
[2019-04-28] MEDS: OLANZAPINE 2.5 MG TAB PO SCH (20:40)
[2019-04-29] MEDS: DULOXETINE HCL 60 MG CAP PO SCH (08:36)
[2019-04-29] MEDS: VERAPAMIL HCL 240 MG TABCR PO SCH (08:36)
--- NOTE | 2019-04-29 08:36 | Discharge Summary ---
Date of Service April 29, 2019 History of Present Illness The patient was drinking and awoke to find her committed suicide by firearm around 2:30 am on 04/09/19. On arrival she was sobbing and incoherent with staff despite negative tox and TIMMY only 140. Per pillowcase folder in the ED, shortly after she arrived at ED she made statement of wanting to and began banging her head on the bed. "I want to . Why didn't he take me with him?". Dr Mc was consulted to recommend prn medication and she received Haldol 5 mg and 2mg Ativan after which she slept for some time. She arrived on the unit after 2 am and slept until about 10 at which time she sobbed loudly and was unable to speak/provide history. Staff were concerned about her hitting her head and she was transferred to unlocked seclusion for closer monitoring. She was unable to provide much meaningful history but agreed to Ativan 2 mg IM (she preferred IM vs PO) and ultimately took PO meds and is now resting. A friend stopped by to speak [facility] staff and confirmed that was having intractable pain for past few weeks. Physical Exam Psychiatric Orientation: alert, oriented x 3 and cooperative Apperance: appropriately dressed (casually, in floral sun dress), appropriately groomed and appeared stated age Eye Contact: good eye contact Motor Behavior: steady gait and station and no abnormal motor movements Speech: normal rate/rhythm/volume of speech Affect: + depressed affect (mild; but smiling and appears superficially cheerful) and mood congruent with affect; no anxious affect Mood: + depressed mood ("I think I'm always going to be sad, but today I'm pretty good") Thought Process: goal directed thought process, linear/logical thought process and clear/coherent thought process Thought Content: reality based without delusions, + loneliness and + guilt Suicidal Thoughts: denies suicidal thoughts (but does state "I think I'll always want to be with Regis"), denies suicidal plan and denies suicidal intent Homicidal Thoughts: denies homicidal thoughts Hallucinations: no auditory hallucinations and no visual hallucinations Cognition: remote memory grossly intact, attention grossly intact and language grossly intact Estimated Intelligence: consistent with education level Insight: + fair insight Judgement: + fair judgement Vital Signs (Past 24 Hours) Last Vital Signs Temp 36.8 C 04/29/19 06:58 Pulse 97 H 04/29/19 06:58 Resp 18 04/29/19 06:58 BP 145/91 H 04/29/19 06:58 Pulse Ox 96 04/09/19 22:32 Principal Diagnosis - Grief reaction - Major depressive disorder - Borderline personality disorder/narcissistic traits - Self-injurious behavior Psychiatric Data 63-year-old recently female with a history of recurrent depression, prior suicide attempts/hospitalizations, and borderline and narcissistic personality disorder who presented with inability to function and suicidality following 's dramatic suicide by self-inflicted gunshot. Pt was admitted voluntarily after a prolonged period in the ED, attempting to stabilize her mood as she was rightfully rather hysterical at time of presentation. Pt took several days to reach a state in which she could have productive conversations with staff due to severity of her grief reaction. During this time, she was treated with her home medications and prn lorazepam. At one point, the patient participated in self-injurious behavior, by breaking the lid of her water mug and using it to excessively scratch her left forearm and right anterior wrist. Wounds were treated and dressed appropriately. Patient was offered the safe room immediately after the incident and slowly transitioned back to her room, but remained on safety tray and other safety precautions. She continued episodes of self-harm, once scratching her hand to the point of breaking the skin and episodes of reportedly banging her head off hard surfaces in her room. Eventually, patient was able to maintain safety, and was taken off safety tray and other precautions. She tolerated these adjustments without any further incidents. Pt was referred to [facility] for more intensive trauma disorder treatment as an options after discharge. Pt wavered in her desire to attend the program, but was ultimately declined as there was not a perceived medical necessity by the facility at this time. Pt was given the contact information, and outpatient providers are welcome to "refresh the referral" should she decompensate in the outpatient setting and which to consider this treatment option further. Pt was initially continued on her home medications, with prn lorazepam available, as she had previously been doing well with her medication regimen and reason for admission was an acute reaction to a rather severe stressor. The only significant medication adjustment discussed was for discontinuation of quetiapine in favor of low-dose olanzapine which patient tolerated well. Pt will be discharged home with prn hydroxyzine, after discussing milder side effect panel when compared to lorazepam and recommendation that coping strategies be her primary tool when facing emotional difficulties on discharge. Fasting lipid and glucose panel were drawn; elevated triglycerides at 170, with remainder of values WNL. While patient continued to demonstrate episodes of tearfulness and emotional difficulties, she showed improvement in condition over the course of her treatment. Pt participated appropriately in group and recreational programming and was supportive of peers. She allowed a family meeting to be scheduled with her sons, who are supportive and are requesting the patient stay with them after discharge to prevent rapid decompensation by returning to her home too quickly. Pt verbalized consistently future-oriented thoughts by the end of her stay, and reportedly felt comfortable with the idea of discharge. Discharge planning was coordinated with the patient's sons, who felt comfortable with her returning home. Aftercare arrangements were made with her established outpatient ps ychiatric providers, to allow for timely follow-up after discharge. On day of discharge, patient was able to contract for safety and continued to verbalize request to leave the facility. Based on review of patient's case and their current presentation, risk of harm to self or others is no longer perceived to be acute. Management of symptoms on an outpatient basis seems the most appropriate and least restrictive setting. Pt seems appropriate for discharge with recommendation for consistent follow-up with outpatient psychiatric prescriber and therapist. Pt verbalized understanding of discharge plan reviewed and is agreeable with plan to be discharged home today. Day of Discharge Assessment Patient's case was reviewed and discussed with nursing and social work. Staff report the patient is positive about discharge, and requesting to leave today. No issues are reported from overnight. Reviewed that [facility] with remain an available option, but only if outpatient treatment fails. Patient was seen today to assess readiness for discharge. Pt states that she feels "pretty good" today. She states her night went well, and that she continues to "write letters to Regis" on a daily basis. Pt continues to find this practice therapeutic. Pt states she feels ready to be discharge. She reports feeling "uncomfortable that I'm not going back to my home, but I certainly understand, and I feeling comfortable with Steve [son]." Pt is able to share with this provider small tasks that she plans to complete after she is discharged. Pt remains future oriented for the duration of our conversation. She denies active suicidal ideation, plan, or intent. Pt states however, "I don't think I'll ever not wish that I was with him though." Pt again request lorazepam for discharge, and was told this medication was not indicated or recommended. We did discuss utilization of coping strategies she has learned here and use of prn hydroxyzine for acute anxiety. Pt is requesting discharge today. Plans were reviewed and she was able to verbalize a safety plan with this provider, written plan was reviewed by this provider prior to discharge. At this time, it is felt that patient is not at acute risk of harm to self, and that the least restrictive setting for ongoing psychiatric treatment is on an outpatient basis with [facility] providers. Pt verbalized understanding and is agreeable with being discharged home to her son's house today. ROS: Constitutional: denied Cardiovascular: denied Respiratory: denied Gastrointestinal: denied Neurological: denied Psychiatric: denies symptoms other than stated above Total of at least 10 systems reviewed, pertinent positives as above and in HPI. Transition of Care Transition Of Care Record: was reviewed with the patient Advance Directives Advance Directives Information Provided: Yes Advance Directives: No Mental Health Advance Directive: No Advance Directives on File: No Living Will: No Power of Brake Repairer Air: No Advance Directives Reason:: Declines as Mental Health Visit. Risk Factors Assessment Presenting risk factors reviewed on discharge. Precipitating stressors mitigated by: admission for inpatient psychiatric observation and treatment, appropriate adjustments to medications to target symptoms, attendance of therapeutic treatment groups, development of healthy and effective coping strategies, involvement of outpatient supports, completion of a safety plan, confirmation of guns and weapons being secured, treatment of medical conditions and education on diagnoses. Pt has demonstrated improvement in condition with regard to improvement in mood, better ability to regulate emotional distress, and resolution of acute suicidality. At this time, patient is requesting discharge and is no longer considered to be at acute risk of harm to herself or others. Pt will be discharged with recommendation for ongoing outpatient psychiatric treatment. Pt does remain at increased risk of harm to self or others when compared to the general population, and there are several risk factors which are not likely to be mitigated in an inpatient treatment setting. Pt has a long-standing history of suicide attempts and self-harm behaviors even prior to the loss of her - which continues to increase her risk of possible attempts at self- harm. It is felt that the acute risk of suicide has been reduced, and si gnificant time was spent communicating and coordinating safety and discharge planning with the patient and her sons to reduce risk of decompensation or harm to self on discharge. Immediate risk was reduced and patient denied SI, plan, or intent on discharge. It is felt she no longer meets criteria for acute inpatient psychiatric treatment, and the least restrictive setting at this time is for a trial of outpatient psychiatric management. Male: No : Yes Do You Have Access To A Gun?: Yes ( just shot self, need to confirm with sons if taken out of home) Health Problems: No Mental Health Diagnoses: Yes Substance Use Disorders: Yes Previous Attempt: Yes Previous Psychiatric Hospitalization: Yes Hopelessness: Yes Protective Factors Assessment : Yes Responsible for Young Children: No Employed: No (Retired) Supportive Family: Yes Tobacco Cessation at Discharge Tobacco Cessation Medication Prescribed at Discharge: Not Applicable/Non-Smoker Total Time Total Time Spent: Greater Than 30 Minutes Total Time Includes: Examination of the patient, Discharge Planning, Medication Reconciliation and Communication with other providers Discharge Data Lab Results 04/09/19 04/09/19 04/09/19 06:00 06:00 09:56 WBC 8.14 RBC 4.47 Hgb 13.4 Hct 40.3 MCV 90.2 MCH 30.0 MCHC 33.3 RDW Std Deviation 44.1 RDW Coeff of Fela 13.4 Plt Count 240 MPV 9.8 Immature Gran % (Auto) 0.1 Neut % (Auto) 74.4 Lymph % (Auto) 17.2 [place] % (Auto) 7.7 Eos % (Auto) 0.1 Baso % (Auto) 0.5 Immature Gran # (Auto) 0.01 Neut # (Auto) 6.05 Lymph # (Auto) 1.40 [place] # (Auto) 0.63 H Eos # (Auto) 0.01 Baso # (Auto) 0.04 Sodium Potassium Chloride Carbon Dioxide Anion Gap BUN Creatinine Est Cr Clr Drug Dosing Est GFR ( Amer) Est GFR (Non-Af Amer) BUN/Creatinine Ratio Glucose Fasting Glucose Calcium Total Bilirubin AST ALT Alkaline Phosphatase Total Protein Albumin Globulin Albumin/Globulin Ratio Triglycerides Cholesterol LDL Cholesterol, Calc VLDL Cholesterol, Calc HDL Cholesterol Cholesterol/HDL Ratio TSH Urine Color Yellow Urine Appearance Cloudy A Urine pH 7.0 Ur Specific King 1.016 Urine Protein Trace H Urine Glucose (UA) Negative Urine Ketones Negative Urine Blood Negative Urine Nitrite Negative Urine Bilirubin Negative Urine Urobilinogen Negative Ur Leukocyte Esterase 1+ H Urine WBC (Auto) 10-30 H Urine RBC (Auto) 0-4 U Hyaline Cast (Auto) 1-5 U Epithel Cells (Auto) >30 H Urine Bacteria (Auto) 1+ H Salicylates Urine Opiates Screen Neg Ur Methadone, Qual Neg Acetaminophen Urine Barbiturates Neg Ur Phencyclidine (PCP) Neg U Amphetamin/Meth Scrn Neg MDMA (Ecstasy) Screen Neg U Benzodiazepines Scrn Neg Ur Cocaine Metabolite Neg U Marijuana (THC) Screen Neg Ethyl Alcohol mg/dL 04/09/19 04/09/19 04/09/19 09:56 09:56 09:56 WBC RBC Hgb Hct MCV MCH MCHC RDW Std Deviation RDW Coeff of Fela Plt Count MPV Immature Gran % (Auto) Neut % (Auto) Lymph % (Auto) [place] % (Auto) Eos % (Auto) Baso % (Auto) Immature Gran # (Auto) Neut # (Auto) Lymph # (Auto) [place] # (Auto) Eos # (Auto) Baso # (Auto) Sodium 145 Potassium 3.5 Chloride 110 H Carbon Dioxide 28 Anion Gap 6.0 BUN 18 Creatinine 1.16 Est Cr Clr Drug Dosing 46.3 Est GFR ( Amer) 57.6 Est GFR (Non-Af Amer) 49.7 BUN/Creatinine Ratio 15.7 Glucose 95 Fasting Glucose Calcium 9.3 Total Bilirubin 0.5 AST 17 ALT 21 Alkaline Phosphatase 113 Total Protein 7.0 Albumin 3.8 Globulin 3.2 Albumin/Globulin Ratio 1.2 Triglycerides Cholesterol LDL Cholesterol, Calc VLDL Cholesterol, Calc HDL Cholesterol Cholesterol/HDL Ratio TSH 0.945 Urine Color Urine Appearance Urine pH Ur Specific King Urine Protein Urine Glucose (UA) Urine Ketones Urine Blood Urine Nitrite Urine Bilirubin Urine Urobilinogen Ur Leukocyte Esterase Urine WBC (Auto) Urine RBC (Auto) U Hyaline Cast (Auto) U Epithel Cells (Auto) Urine Bacteria (Auto) Salicylates < 1.7 L Urine Opiates Screen Ur Methadone, Qual Acetaminophen < 2 L Urine Barbiturates Ur Phencyclidine (PCP) U Amphetamin/Meth Scrn MDMA (Ecstasy) Screen U Benzodiazepines Scrn Ur Cocaine Metabolite U Marijuana (THC) Screen Ethyl Alcohol mg/dL < 3.0 04/14/19 07:09 WBC RBC Hgb Hct MCV MCH MCHC RDW Std Deviation RDW Coeff of Fela Plt Count MPV Immature Gran % (Auto) Neut % (Auto) Lymph % (Auto) [place] % (Auto) Eos % (Auto) Baso % (Auto) Immature Gran # (Auto) Neut # (Auto) Lymph # (Auto) [place] # (Auto) Eos # (Auto) Baso # (Auto) Sodium Potassium Chloride Carbon Dioxide Anion Gap BUN Creatinine Est Cr Clr Drug Dosing Est GFR ( Amer) Est GFR (Non-Af Amer) BUN/Creatinine Ratio Glucose Fasting Glucose 81 Calcium Total Bilirubin AST ALT Alkaline Phosphatase Total Protein Albumin Globulin Albumin/Globulin Ratio Triglycerides 170 H Cholesterol 185 LDL Cholesterol, Calc 103 VLDL Cholesterol, Calc 34 HDL Cholesterol 48 Cholesterol/HDL Ratio 4 TSH Urine Color Urine Appearance Urine pH Ur Specific King Urine Protein Urine Glucose (UA) Urine Ketones Urine Blood Urine Nitrite Urine Bilirubin Urine Urobilinogen Ur Leukocyte Esterase Urine WBC (Auto) Urine RBC (Auto) U Hyaline Cast (Auto) U Epithel Cells (Auto) Urine Bacteria (Auto) Salicylates Urine Opiates Screen Ur Methadone, Qual Acetaminophen Urine Barbiturates Ur Phencyclidine (PCP) U Amphetamin/Meth Scrn MDMA (Ecstasy) Screen U Benzodiazepines Scrn Ur Cocaine Metabolite U Marijuana (THC) Screen Ethyl Alcohol mg/dL Hospital Course (1) Grief reaction: 04/10--prn benzodiazepine effective, monitor use, will need tapered. For now benzo may also provide some coverage (in addition to neurontin) for ETOH withdrawal as unclear amount of use. 04/11--slight improvement today but very difficult to engage in history/appropriate interactions. 04/12 -more able to engage and discuss stressors and her loss. Continue to encour age her to attend and participate in groups and therapy, or work with the counselors one-on-one. 04/14 - continues to be increasingly engaged in treatment; remains tearful and has a lot of guilt surrounding the loss 04/15 - 04/17 - Continue to be better able to participate in group programming - Feeling ready to schedule family meeting with sons to process the situation and discuss discharge/safety planning 04/18 - Family meeting with sons - Process grief and encourage self compassion and forgiveness. 04/19 - 04/20 - Ongoing suicidal ideation, though verbalizing intent is recently reduced - Remains unable to contract for safety outside of the hospital setting, but does feel safe here - Strong self-harm urges, with limited confidence she would be able to inform staff of urges before harming herself - Continue medically necessary private room to reduce access to potentially harmful objects 04/21 - 04/22 - As above, no improvement in patient's condition - mildly worsened over the past few days 04/24 -Explored continued grief response. Discussed potential benefit from support group and will attempt to provide her with contact information and meeting times for local resources (i.e. compassionate Friends, life after loss) 04/26 - Referral to be sent to [facility] for intensive trauma treatment 04/28 - Referral to [facility] was declined at this time due to lack of medical necessity; referral can be "refreshed" on an outpatient basis if necessary - Pt given information for individual grief counselors should she desire, in addition to her established individual counselor - Reiterated again that lorazepam will not be available on discharge and encouraged use of healthy coping strategies for acute anxiety/grief (2) Depression: 04/12 -patient continued on home medications on admission, including duloxetine 120 mg daily, fluoxetine 20 mg daily, gabapentin 300 mg 3 times daily, lamotrigine 100 mg twice daily, buspirone 20 mg twice daily, and quetiapine 75 mg at bedtime. Lorazepam 1 mg every 4 hours as needed was added on admission for severe anxiety. -Request records from her outpatient psychiatrist, Dr. Larson at [facility], to coordinate care. 04/14 - 04/22 - continue home medications as above - Continue supportive therapy and reassurance, no indication for additional medication adjustments at this time, as setting is grief reaction - Encouraged 1:1 counseling as desired, in order to process details she may feel uncomfortable sharing in group 04/23 - As above, continue medications - Will discontinue safety tray and other safety precautions; maintain MNPR - Encourage focus on discharge and safety planning 04/25 -Again reviewed risk for serotonin toxicity taking Cymbalta, Prozac, Seroquel, and BuSpar in combination. Advised she needs to seek urgent medical attention with any concern for such and not to add any additional serotonergic medications to her regimen including over the counters such as cold medications containing dextromethorphan -As she is ambivalent about Seroquel, she agreed to try alternative within the same class tonight and will start 2.5 mg of olanzapine and discontinue the S eroquel hoping for less residual sedation and possibly some additional therapeutic benefit in helping to contain ruminating thoughts and facilitate impulse control to reduce risk for self injury. Reviewed associated risks including metabolic and motor. Patient accepting. 04/26 - Regarding above, reviewed that patient has been taking the above medications in combination for several years, and that she was not in the process of a cross-titration prior to admission - Reviewed that lorazepam will not be provided on discharge and is actually being tapered - Family meeting was held with son and [id number] today; reviewed discharge planning 04/27 - 04/28 - Continue current medication regimen - Coordinate aftercare with outpatient providers and sons - Patient feeling as though may be a decent goal for discharge; will continue to work with her to ensure this is appropriate (3) Borderline personality disorder: 04/12 -continue to encourage the patient to engage in therapy while here, and coordinate with her outpatient therapist, Jennifer, at [facility]. 04/21 - Traits are becoming more apparent as she continues to process the aftermath of her 's suicide - externalizing blame 04/27 - Wavering rather intensely in her consideration of an intensive trauma program on discharge - Giving different staff different reasoning (4) Self-injurious behavior: 04/11 - (per nursing notes) - Self-inflicted scratches to patient's left forearm and smaller area of right wrist - having broken a plastic cup and using the sharp edge to self-harm. Unable to feel confident that she would be able to reach out to staff if she felt the urge to self-harm again - Pt placed on safety tray and recommended to remain in safe room with safety smock available 04/12 - (per nursing notes) - Pt able to contract for safety in her room, denying items of temptation for ongoing self-harm potential 04/15 - Pt reported superficial scratching of her hand - area observed by nursing and this provider today, will continue to monitor during healing with prn bacitracin available as needed - 1 [id number] lesions of the right lateral malleolus is observed, reportedly from "hitting it off of something before I got here" - will plan to treat with bacitracin and cover with dressing initially; continue to observe healing process - Discussed healthy coping strategies that could replace urges to self harm, patient reminded of stress ball in room should she benefit from tactile distraction 04/18 - Continue efforts to work on healthy coping skills and ways to manage urges to self harm. Continue safety tray and suicide precautions. 04/19 - Patient verbalized concern for pain and swelling of her right ankle - encouraged regular use of R.I.C.E prior to consideration for an x-ray; as symptomatology as described is not clearly consistent with suspected fracture or strain/sprain 04/20 - Patient continues to verbalize desire to harm herself physically as a way to cope with her emotions - Denies feeling able to come to staff prior to harming herself, denies feeling she could keep herself safe if she would have access to additional objects which she could use to scratch or cut herself 04/22 - Pt admitted today that she has been banging her head off the window ledge in her room for the past several nights - Staff informed, recommending conscientious monitoring with this in mind, especially overnight 04/23 - Patient able to contract for safety today with the return of silverware and her toothbrush/personal belongings - Will discontinue safety tray and precautions; maintain medically necessary private room 04/24 -Patient has been able to maintain safety in last 24 hours following discont inuation of finger foods. We will continue medically necessary private room for now to maintain security of immediate environment 04/26 - Continues to deny self-harm behavior - Medically necessary private room to be discontinued in anticipation of discharge in the near future Mental Health & Subst Abuse Tx Psychiatrist Name of Psychiatrist: [facility] Roque Larson Psychiatrist's Date of Appointment with Psychiatrist: 05/03/19 Time of Appointment with Psychiatrist: 2:00 p.m. Psychiatric Appointment Comment: [address] [facility] [place] [id number] Therapist Name of Therapist: [facility] Roque Rodriguez Therapist's Date of Therapist Appointment: 05/04/19 Time of Therapist Appointment: 10:00 a.m. Therapy Appointment Comment: [address] [facility] [place] [address] Market Risk Specialist Name of Market Risk Specialist: None Post Discharge Appointments Primary Care Physician Name Of Family Doctor: KATHY Espana Primary Care Time of Appointment with PCP: Follow up as needed. Provider Appointment Comment: [address] [facility] [place] [address] Smoking Cessation Counseling Tobacco Cessation Medication Prescribed at Discharge: Not Applicable/Non-Smoker Other #1: Name of Aftercare Appointment: Grief Therapy Option: [facility]ago Phone Number of Aftercare Appointment: (Ext. [phone]) Aftercare Appointment Comment: [address] [place] [address] #2: Name of Aftercare Appointment: Grief Therapy Option: Tami Klein LCSW Phone Number of Aftercare Appointment: Aftercare Appointment Comment: [address] [facility], [address], [place] [address] #3: Name of Aftercare Appointment: [facility] Phone Number of Aftercare Appointment: [phone] Aftercare Appointment Comment: [address] [facility], [address], [place] [address] #4: Name of Aftercare Appointment: Dolly Goodwin Phone Number of Aftercare Appointment: [phone] Time of Aftercare Appointment: If you are not doing well on an outpatient basis, please have your provider Aftercare Appointment Comment: contact Dolly Goodwin to "refresh the referral" and indicate ongoing need Contact Information Discharge Discharge [address]: [address] [place] [address] [place] [address] Discharge Plan Discharge Items Patient Disposition: Home - Self-Care Reason For Visit: MDD Discharge Diagnosis: Depression; Grief Reaction Condition: Fair Discharge Goals: Decrease discomfort, Improve disease control, Improve function, Increase independence, Learn about illness, Specific goals and Therapeutic intervention Specific Goals: Development of coping strategies to manage grief Activity: Resume your previous activity Non-emergency contact: Primary Care Provider, Psychiatrist and Therapist Call non-emergency contact if: you have any medication questions and your symptoms worsen Follow-up/Referrals: Robert Pinzon MD [Primary Care Provider] - Diet: Regular Addtl Provider Instructions: SPECIAL CARE INSTRUCTIONS: 1. Follow through with your scheduled aftercare appointments. If unable to keep an appointment, please call to reschedule. 2. Take your medication only as prescribed. Medication should not be changed or stopped without the approval of your doctor. In the event of worsening symptoms or concerns about side effects, contact your doctor immediately. 3. Utilize new healthy coping skills, anger management skills, and stress management skills learned during your hospitalization. Journal feelings and process them with a support person. Identify stressors or situations that may result in relapse, deterioration or inappropriate behaviors and develop a plan to deal with those issues. 4. If your coping skills are ineffective and you are in crisis, contact your outpatient providers for direction. If unable to reach your providers, please call the CAN HELP LINE AT or go to the closest Emergency Room. 5. Avoid alcohol and un-prescribed drugs. 6. You have been provided with the Mental Health Advance Directives Pamphlet for your review. AFTERCARE APPOINTMENTS: * Please call your insurance company prior to your scheduled appointment to confirm your aftercare providers are covered. Take your insurance information to your appointments. WHO TO CALL AND WHEN: Medical Emergencies: For questions or emergencies related to your hospital stay, please contact the Inpatient Behavioral Health Unit at [phone]. A wood miller is on-call 31/03 for the Behavioral Health Unit for emergencies At any time you feel your situation is an emergency, you may also call 911 immediately. Your Doctors Instructions noted above were prepared by provider Екатерина Wheatley PA-C. Prescriptions: New olanzapine 2.5 mg Tablet 2.5 mg PO HS 30 Days Qty: 30 RF: 0 hydroxyzine HCl 25 mg Tablet 25 mg PO Q4H PRN (Reason: anxiety/insomnia) 30 Days Qty: 60 RF: 0 Continued buspirone 10 mg Tablet 20 mg PO BID RF: 0 fluoxetine 20 mg Capsule 20 mg PO DAILY RF: 0 gabapentin 300 mg capsule 300 mg PO TID RF: 0 lamotrigine 100 mg tablet 100 mg PO BID RF: 0 verapamil 240 mg capsule,ext rel. pellets 24 hr 240 mg PO DAILY RF: 0 duloxetine 60 mg capsule,delayed release(DR/EC) 60 mg PO BID RF: 0 Discontinued quetiapine 50 mg tablet 75 mg PO HS RF: 0 Stand-Alone Forms: [facility] Discharge Orders: Discharge Order (Routine); Ordered 08/22/19 Ordered By: Екатерина Wheatley Admission Data Admit Date/Time: 04/10/19 02:29 Attending Provider: Jenny Hammer Admit Provider: Jean cM Primary Care Provider: Robert Pinzon Service: Psychiatry Other Interventions: Discharge Summary Assessment (RN) Last Done: 04/29/19 09:47 PSY Interdisciplinary Discharge Planning Last Done: 04/29/19 09:47 Pending Studies at Discharge: No DC Date/Time DO NOT enter until pt leaves facility: 04/29/19 10:34
[2019-04-29] MEDS: lamoTRIgine 100 MG TAB PO SCH (08:37)
[2019-04-29] MEDS: GABAPENTIN 300 MG CAP PO SCH (08:37)
[2019-04-29] MEDS: FLUOXETINE HCL 20 MG CAP PO SCH (08:37)
== END 2019-04-29 10:34 | disposition home or self-care (01) | DRG 881 ==
LOC: ED 04:36 → 3S 04-10 01:54 → SUATTDRO 04-10 02:29 → 3S 04-10 02:29